=== PATIENT | female | born 1965 | race Hispanic/Latino ===

== ENCOUNTER 2018-03-25 18:16 | Observation (INO) | payer BC ==
[~2018-03-25] VITALS: Ht 149.9 cm; Wt 79.8 kg
[~2018-03-25 18:16] MED LIST: AMBIEN10 MG PO; AMITRIPTYLINE H50 MG PO; ASPIR-TRIN325 MG PO; ASPIRIN325 M2 PO; ASPIRIN325 MG PO; DIAZEPAM10 MG PO; DIAZEPAM5 MG PO; IBUPROFEN400 MG PO; LAMOTRIGINE100 MG PO; LISINOPRIL10 MG PO; MACROBID 100 M100 MG PO; NORCO 10MG-325MG1 EA PO; OXYBUTYNIN CHLOR5 MG PO; Z.0.AMLODIPINE BESY1 PO; Z.0.CLONIDINE HCL0.2 PO; Z.0.TORADOL10 MG; Z.0.VICODIN 5-5001 E PO; Z.0.XANAX1 MG PO
[2018-03-25 19:12] LABS: BASOPHILS % 0.4 % (0.0-1.0); EOSINOPHILS # (AUTO) 0.2 (0.0-0.4); EOSINOPHILS % 1.6 % (0.0-6.0); HEMATOCRIT 41.5 % (34.2-44.1); HEMOGLOBIN 14.2 g/dL (12.0-16.0); LYMPHOCYTES # (AUTO) 3.4 (1.0-3.2); LYMPHOCYTES % 34.7 % (18.0-39.1); MEAN CORPUSCULAR HEMOGLOBIN 29.4 pg (28-32); MEAN CORPUSCULAR HGB CONC 34.2 g/dL (31-35); MEAN CORPUSCULAR VOLUME 85.9 fL (81-99); MONOCYTES # (AUTO) 0.5 (0.2-0.8); MONOCYTES % 5.3 % (4.4-11.3); NEUTROPHILS # (AUTO) 5.6 (2.1-6.9); NEUTROPHILS % 57.7 % (38.7-80.0); PLATELET COUNT 298 x10e3/uL (140-360); RED BLOOD COUNT 4.83 x10e6/uL (3.6-5.1)
[2018-03-25 19:19] LABS: BILIRUBIN,URINE NEGATIVE (NEGATIVE); CLARITY,URINE CLEAR (CLEAR); COLOR,URINE YELLOW (YELLOW); KETONES,URINE NEGATIVE (NEGATIVE); LEUKOCYTE ESTERASE ,URINE TRACE (NEGATIVE); NITRITE,URINE NEGATIVE (NEGATIVE); PROTEIN,URINE DIPSTICK 1+ (NEGATIVE); URINE UROBILINOGEN 0.2 mg/dL (0.2 - 1)
[2018-03-25] MEDS ORDERED: ONDANSETRON HCL INJ 2 MG/ML VIAL IV STA (19:25)
[2018-03-25 19:30] LABS: BACTERIA,URINE FEW /HPF; EPITHELIAL CELLS,URINE RARE /LPF; MUCUS,URINE FEW (RARE); WBC,URINE (MAN) 21-50 /HPF (0-5)
[2018-03-25] MEDS ORDERED: KETOROLAC TROMETHAMINE 30 MG/ML VIAL IV NR (19:30)
[2018-03-25 19:34] LABS: ALANINE AMINOTRANSFERASE 20 IU/L (0-55); ALBUMIN/GLOBULIN RATIO 1.2 (0.8-2.0); ALKALINE PHOSPHATASE 84 IU/L (40-150); ANION GAP 15.8 mmol/L (8-16); BLOOD UREA NITROGEN 16 mg/dL (7-26); BUN/CREATININE RATIO 19 (6-25); CALCIUM 9.7 mg/dL (8.4-10.2); CARBON DIOXIDE 23 mmol/L (22-29); CHLORIDE 108 mmol/L (98-107); CREATININE, SERUM 0.85 mg/dL (0.57-1.11); EST GLOMERULAR FILTRATION RATE > 60 ML/MIN (60-); GLUCOSE 95 mg/dL (74-118); POTASSIUM 3.8 mmol/L (3.5-5.1); SODIUM 143 mmol/L (136-145)
[2018-03-25] MEDS ORDERED: CEFTRIAXONE SOD 1 GM VIAL IV ONE (19:45)
[2018-03-25] MEDS ORDERED: SODIUM CHLORIDE 0.9% 1000ML 1,000 ML IV SCH (20:00)
[2018-03-25] MEDS ORDERED: ONDANSETRON HCL INJ 2 MG/ML VIAL IV PRN (20:00)
[2018-03-25] MEDS ORDERED: CEFTRIAXONE SOD 1 GM VIAL IV SCH (20:00)
[2018-03-25] MEDS ORDERED: MORPHINE SULFATE 2 MG/ML SYR IV PRN (20:00)
--- NOTE | 2018-03-25 20:08 | Diagnostic Imaging Report ---
EXAM: CT Abdomen and Pelvis WITHOUT contrast INDICATION: Kidney stone. Pain. COMPARISON: 09/13/2016. TECHNIQUE: Abdomen and pelvis were scanned utilizing a multidetector helical scanner from the lung base to the pubic symphysis without administration of IV contrast. Absence of intravenous contrast decreases sensitivity for detection of focal lesions and vascular pathology. Coronal and sagittal reformations were obtained. Routine protocol was performed. IV CONTRAST: None. ORAL CONTRAST: Water RADIATION DOSE: Total DLP: 723.32 mGy*cm Estimated effective dose: (DLP x 0.015 x size factor) mSv COMPLICATIONS: None FINDINGS: LINES and TUBES: None. LOWER THORAX: Bibasilar dependent atelectasis. HEPATOBILIARY: Diffuse low-attenuation of the hepatic parenchyma suggestive of steatosis with focal fatty sparing about the gallbladder fossa. No focal hepatic lesions. No biliary ductal dilation. GALLBLADDER: No radio-opaque stones or sludge. No wall thickening. SPLEEN: No splenomegaly. Capsular calcification again observed. PANCREAS: No focal masses or ductal dilatation. ADRENALS: Mild thickening of the adrenal glands bilaterally with low attenuation suggestive of the presence of small adenomata versus less likely hyperplasia. KIDNEYS/URETERS: Bilateral cortical scarring, right greater than left. No hydronephrosis. No cystic or solid mass lesions. Bilateral nonobstructing renal calculi the largest in the lower pole of the left kidney measuring 8.6 mm again observed. The previously present right double-J ureteral stent has been removed. GI TRACT: No abnormal distention, wall thickening, or evidence of bowel obstruction. Appendix is normal. PELVIC ORGANS/BLADDER: Unremarkable. LYMPH NODES: No lymphadenopathy. VESSELS: There is mild atherosclerotic disease in the aorta and major arterial branches. PERITONEUM / RETROPERITONEUM: No free air or fluid. BONES: Unremarkable. SOFT TISSUES: Unremarkable. IMPRESSION: 1. Bilateral nonobstructing renal calculi. Signed by: Dr. Cyndi Hurd M.D. on 03/25/2018 8:05 PM
[2018-03-25] MEDS ORDERED: ONDANSETRON HCL INJ 2 MG/ML VIAL ONE (20:45)
[2018-03-25] MEDS ORDERED: SODIUM CHLORIDE 0.9% 1000ML 1,000 ML ONE (20:45)
[2018-03-25] MEDS ORDERED: HYDRALAZINE HCL 20 MG/ML VIAL IV PRN ×2 (21:15→23:45)
[2018-03-25] MEDS ORDERED: HYDROCODONE/APAP 10MG-325MG TAB PO PRN ×2 (21:15→23:45)
--- NOTE | 2018-03-25 21:54 | History and Physical ---
CHIEF COMPLAINT: Abdominal pain, nausea, and vomiting. HPI: Ms. Alvarez is a 52-year-old female. She presented to the emergency room with worsening left flank pain, nausea, and vomiting. The pain felt like her kidney stone. She has history of multiple kidney stones in the past and follows up with Dr. Mccarthy. She reports that the pain is better now. She reported that the pain was associated with nausea and vomiting, it is better now. She denies any chest pain, shortness of breath, or focal weakness. REVIEW OF SYSTEMS: GENERAL: Denies any fever or chills. HEAD: Denies any head trauma. ENT: Denies any earache. CVS: Denies any chest pain. RESPIRATORY: Denies any shortness of breath. The rest of the review of systems is negative except as in HPI. PAST MEDICAL HISTORY: History of kidney stones in the past, hypertension. PAST SURGICAL HISTORY: , cystoscopy, rotator cuff surgery. FAMILY AND SOCIAL HISTORY: She smokes one-third pack per day. She denies any alcohol use. 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 Lives with her and kids. PHYSICAL EXAMINATION: VITAL SIGNS: Temperature 98.5, pulse of 94, blood pressure 116/54, respiratory rate of 18, O2 sat 97%. HEENT: Head atraumatic, normocephalic. Oral mucosa is dry. Oropharynx clear. NECK: Supple. No JVD. Thyroid not enlarged. CHEST: Clear to auscultation bilaterally. No wheezing, no crackles. HEART: S1 and S2 audible. ABDOMEN: Soft, nontender, nondistended. EXTREMITIES: No clubbing, cyanosis, or edema. NEUROLOGICAL: Awake and alert. LABS: White count of 9.7, hemoglobin 14.2, platelets 298,000. Chemistry is within normal limits. She underwent a CT scan of the abdomen and pelvis, which showed bilateral nonobstructing renal stone. ASSESSMENT: Ms. Alvarez is a 52-year-old female presented with abdominal pain, like her usual pain with kidney stones as she has history of multiple kidney stones in the past. CURRENT PROBLEMS: 1. Nephrolithiasis. 2. Hypertension. PLAN: 1. Continue the patient on Rocephin as ordered. 2. Consult urology. 3. Discharge patient home when cleared by urology. Job#: [id number]
[2018-03-26] MEDS: SODIUM CHLORIDE 0.9% 1000ML 1,000 ML IV SCH ×3 (00:09→21:37)
[2018-03-26] MEDS: OXYBUTYNIN CHLORIDE 5 MG TAB PO SCH ×4 (00:10→21:37)
[2018-03-26] MEDS: LISINOPRIL 10 MG TAB PO SCH ×2 (02:19→21:00)
[2018-03-26] MEDS: ZOLPIDEM TARTRATE 10 MG TAB PO SCH ×2 (02:20→21:37)
[2018-03-26 05:50] LABS: BASOPHILS # (AUTO) 0.1 (0.0-0.1); BASOPHILS % 0.5 % (0.0-1.0); EOSINOPHILS # (AUTO) 0.2 (0.0-0.4); EOSINOPHILS % 2.2 % (0.0-6.0); HEMATOCRIT 39.5 % (34.2-44.1); HEMOGLOBIN 13.4 g/dL (12.0-16.0); LYMPHOCYTES # (AUTO) 4.6 (1.0-3.2); LYMPHOCYTES % 49.2 % (18.0-39.1); MEAN CORPUSCULAR HEMOGLOBIN 29.5 pg (28-32); MEAN CORPUSCULAR HGB CONC 33.9 g/dL (31-35); MEAN CORPUSCULAR VOLUME 86.8 fL (81-99); MONOCYTES # (AUTO) 0.6 (0.2-0.8); MONOCYTES % 6.1 % (4.4-11.3); NEUTROPHILS # (AUTO) 3.9 (2.1-6.9); NEUTROPHILS % 41.7 % (38.7-80.0); PLATELET COUNT 254 x10e3/uL (140-360); RED BLOOD COUNT 4.55 x10e6/uL (3.6-5.1); RED CELL DISTRIBUTION WIDTH 14.2 % (11.7-14.4)
[2018-03-26 06:20] LABS: ANION GAP 11.9 mmol/L (8-16); BLOOD UREA NITROGEN 16 mg/dL (7-26); BUN/CREATININE RATIO 18 (6-25); CALCIUM 9.2 mg/dL (8.4-10.2); CARBON DIOXIDE 25 mmol/L (22-29); CHLORIDE 110 mmol/L (98-107); CREATININE, SERUM 0.91 mg/dL (0.57-1.11); EST GLOMERULAR FILTRATION RATE > 60 ML/MIN (60-); GLUCOSE 85 mg/dL (74-118); POTASSIUM 3.9 mmol/L (3.5-5.1); SODIUM 143 mmol/L (136-145)
[2018-03-26] MEDS ORDERED: CEFTRIAXONE SOD 1 GM VIAL ONE (08:44)
[2018-03-26] MEDS ORDERED: GENTAMICIN 80MG/NS 100 ML 200 ML IV ONE (08:45)
[2018-03-26] MEDS ORDERED: IOPAMIDOL 300MG/ML 50ML INFUS..BTL IV ONE (08:49)
[2018-03-26] MEDS ORDERED: AMLODIPINE BESYLATE 10 MG TAB PO SCH (09:00)
[2018-03-26] MEDS ORDERED: LAMOTRIGINE 100 MG TAB PO SCH (09:00)
[2018-03-26] MEDS ORDERED: ASPIRIN 325 MG TAB PO SCH (09:00)
[2018-03-26] MEDS ORDERED: OXYBUTYNIN CHLORIDE 5 MG TAB PO SCH (09:00)
[2018-03-26] MEDS: ASPIRIN 325 MG TAB PO SCH (09:00)
[2018-03-26] MEDS: CEFTRIAXONE SOD 1 GM VIAL IV SCH ×2 (09:00→21:37)
[2018-03-26] MEDS: LAMOTRIGINE 100 MG TAB PO SCH (09:00)
[2018-03-26] MEDS ORDERED: FLUCONAZOLE 100 MG TAB PO SCH (09:00)
[2018-03-26] MEDS: FLUCONAZOLE 100 MG TAB PO SCH (09:00)
[2018-03-26] MEDS ORDERED: FENTANYL CITRATE/PF 100MCG/2 ML INJ ONE ×2 (11:28→16:32)
[2018-03-26] MEDS ORDERED: MORPHINE SULFATE 2 MG/ML SYR ONE (13:42)
[2018-03-26 14:30] VITALS: BP 138/64
[2018-03-26] MEDS ORDERED: SEVOFLURANE INHAL SOLN 250 ML PEN BTL ONE (14:41)
[2018-03-26] MEDS ORDERED: LIDOCAINE HCL 2% LOCAL INJ 5 ML SDV VIAL INJ ONE (14:41)
[2018-03-26] MEDS ORDERED: ONDANSETRON HCL INJ 2 MG/ML VIAL ONE (14:41)
[2018-03-26] MEDS ORDERED: DEXAMETHASONE SOD PHOS INJ 4 MG/ML VIAL ONE (14:41)
[2018-03-26] MEDS ORDERED: PROPOFOL IV EMULSION 10 MG/ML 20 ML VIAL ONE (14:41)
[2018-03-26 16:25] VITALS: BP 141/62
[2018-03-26] MEDS ORDERED: MIDAZOLAM HCL 2 MG/2 ML VIAL ONE (16:32)
[2018-03-26] MEDS: AMLODIPINE BESYLATE 10 MG TAB PO SCH (17:05)
[2018-03-26] MEDS: MORPHINE SULFATE INJ 4 MG/ML INJ IV PRN ×2 (17:05→21:30)
[2018-03-26 20:00] VITALS: BP 126/59
[2018-03-26] MEDS ORDERED: ZOLPIDEM TARTRATE 10 MG TAB PO SCH (21:00)
[2018-03-26] MEDS ORDERED: LISINOPRIL 10 MG TAB PO SCH (21:00)
[2018-03-27] VITALS (7 sets, daily range): BP systolic 111–135; BP diastolic 55–67
[2018-03-27] MEDS: MORPHINE SULFATE INJ 4 MG/ML INJ IV PRN ×5 (03:52→22:28)
[2018-03-27 05:18] LABS: BASOPHILS % 0.2 % (0.0-1.0); EOSINOPHILS % 0.2 % (0.0-6.0); HEMATOCRIT 35.9 % (34.2-44.1); HEMOGLOBIN 12.3 g/dL (12.0-16.0); LYMPHOCYTES # (AUTO) 2.5 (1.0-3.2); LYMPHOCYTES % 25.2 % (18.0-39.1); MEAN CORPUSCULAR HEMOGLOBIN 29.2 pg (28-32); MEAN CORPUSCULAR HGB CONC 34.3 g/dL (31-35); MEAN CORPUSCULAR VOLUME 85.3 fL (81-99); MONOCYTES # (AUTO) 0.6 (0.2-0.8); MONOCYTES % 6.4 % (4.4-11.3); NEUTROPHILS # (AUTO) 6.7 (2.1-6.9); NEUTROPHILS % 67.4 % (38.7-80.0); PLATELET COUNT 210 x10e3/uL (140-360); RED BLOOD COUNT 4.21 x10e6/uL (3.6-5.1); RED CELL DISTRIBUTION WIDTH 13.6 % (11.7-14.4)
[2018-03-27 05:40] LABS: ANION GAP 13.1 mmol/L (8-16); BLOOD UREA NITROGEN 13 mg/dL (7-26); BUN/CREATININE RATIO 16 (6-25); CALCIUM 8.6 mg/dL (8.4-10.2); CARBON DIOXIDE 23 mmol/L (22-29); CHLORIDE 111 mmol/L (98-107); CREATININE, SERUM 0.83 mg/dL (0.57-1.11); EST GLOMERULAR FILTRATION RATE > 60 ML/MIN (60-); GLUCOSE 107 mg/dL (74-118); POTASSIUM 4.1 mmol/L (3.5-5.1); SODIUM 143 mmol/L (136-145)
[2018-03-27] MEDS: SODIUM CHLORIDE 0.9% 1000ML 1,000 ML IV SCH ×3 (05:45→21:06)
[2018-03-27] MEDS: AMLODIPINE BESYLATE 10 MG TAB PO SCH (08:15)
[2018-03-27] MEDS: CEFTRIAXONE SOD 1 GM VIAL IV SCH ×2 (08:15→21:05)
[2018-03-27] MEDS: ASPIRIN 325 MG TAB PO SCH (08:15)
[2018-03-27] MEDS: OXYBUTYNIN CHLORIDE 5 MG TAB PO SCH ×3 (08:15→21:05)
[2018-03-27] MEDS: LAMOTRIGINE 100 MG TAB PO SCH (08:15)
[2018-03-27] MEDS: FLUCONAZOLE 100 MG TAB PO SCH (08:15)
[2018-03-27] MEDS: ONDANSETRON HCL INJ 2 MG/ML VIAL IV PRN (14:36)
[2018-03-27] MEDS: LISINOPRIL 10 MG TAB PO SCH (21:05)
[2018-03-27] MEDS: ZOLPIDEM TARTRATE 10 MG TAB PO SCH (21:05)
[2018-03-28] MEDS: SODIUM CHLORIDE 0.9% 1000ML 1,000 ML IV SCH ×2 (01:45→07:16)
[2018-03-28] MEDS: MORPHINE SULFATE INJ 4 MG/ML INJ IV PRN (02:45)
[2018-03-28] MEDS: ONDANSETRON HCL INJ 2 MG/ML VIAL IV PRN (02:45)
[2018-03-28 04:00] VITALS: BP 129/64
[2018-03-28 08:25] VITALS: BP 110/58
[2018-03-28] MEDS: ASPIRIN 325 MG TAB PO SCH (09:24)
[2018-03-28] MEDS: OXYBUTYNIN CHLORIDE 5 MG TAB PO SCH (09:24)
[2018-03-28] MEDS: CEFTRIAXONE SOD 1 GM VIAL IV SCH (09:24)
[2018-03-28] MEDS: FLUCONAZOLE 100 MG TAB PO SCH (09:24)
[2018-03-28] MEDS: AMLODIPINE BESYLATE 10 MG TAB PO SCH (09:24)
[2018-03-28] MEDS: LAMOTRIGINE 100 MG TAB PO SCH (09:24)
[2018-03-28 10:40] VITALS: BP 110/58
[2018-03-28] MEDS ORDERED: DIFLUCAN100 MG PO (11:00)
[2018-03-28] MEDS ORDERED: ZOFRAN ODT4 MG SL (11:00)
[2018-03-28] MEDS ORDERED: TYLENOL WITH C1 EACH PO (11:01)
--- NOTE | 2018-03-28 14:42 | Discharge Summary ---
FINAL DIAGNOSES 1. Nephrolithiasis. 2. Status post lithotripsy. 3. Hypertension. 4. History of kidney stones in the past. 5. Smoker. ADMISSION HISTORY AND HOSPITAL COURSE: Ms. Alvarez is a 52-year-old female admitted with abdominal pain and nausea, found to have nonobstructing renal stone. Patient underwent lithotripsy. Dr. Mccarthy evaluated the patient. Patient had UTI and has been started on Diflucan. Urology has cleared the patient for discharge. She will be discharged home to follow with her primary care physician. NI KEE MD Job#: [id number] EV
--- OUTSIDE RECORDS SUMMARY | 2018-05-22 00:13 | XMS REPORT ---
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 Allergies, Adverse Reactions, Alerts This patient has no known allergies or adverse reactions. Medications This patient has no known medications. Results Test Description Test Time Test Comments Text Results Atomic Results Result Comments CT ABDOMEN/PELVIS WO 2018-03-25 19:58:00 [place] [address] Patient Name: CADENCE OBREGON MR #: [id number] : 1965 Age/Sex: 52/F Req #: [id number] Adm Physician: Ordered by: JULIETA FAULKNER MD Report #: [id number] Location: ER Room/Bed: ____ Procedure: [id number] CT/CT ABDOMEN/PELVIS WO Exam Date: 03/25/18 Exam Time: 0 REPORT STATUS: Signed EXAM: CT Abdomen and Pelvis WITHOUT contrast INDICATION: Kidney stone. Pain. COMPARISON: 09/13/2016. TECHNIQUE: Abdomen and pelvis were scanned utilizing a multidetector helical scanner from the lung base to the pubic symphysis without administration of IV contrast. Absence of intravenous contrast decreases sensitivity for detection of focal lesions and vascular pathology. Coronal and sagittal reformations were obtained. Routine protocol was performed. IV CONTRAST: None. ORAL CONTRAST: Water RADIATION DOSE: Total DLP: 723.32 mGy*cm Estimated effective dose: (DLP x 0.015 x size factor) mSv COMPLICATIONS: None FINDINGS: LINES and TUBES: None. LOWER THORAX : Bibasilar dependent atelectasis. HEPATOBILIARY: Diffuse low-attenuation of the hepatic parenchyma suggestive of steatosis with focal fatty sparing about the gallbladder fossa. No focal hepatic lesions. No biliary ductal dilation. GALLBLADDER: No radio-opaque stones or sludge. No wall thickening. SPLEEN: No splenomegaly. Capsular calcification again observed. PANCREAS: No focal masses or ductal dilatation. ADRENALS: Mild thickening of the adrenal glands bilaterally with low attenuation suggestive of the presence of small adenomata versus less likely hyperplasia. KIDNEYS/URETERS: Bilateral cortical scarring, right greater than left. No hydronephrosis. No cystic or solid mass lesions. Bilateral nonobstructing renal calculi the largest in the lower pole of the left kidney measuring 8.6 mm again observed. The previously present right double-J ureteral stent has been removed. GI TRACT: No abnormal distention, wall thickening, or evidence of bowel obstruction. Appendix is normal. PELVIC ORGANS/ BLADDER: Unremarkable. LYMPH NODES: No lymphadenopathy. VESSELS: There is mild atherosclerotic disease in the aorta and major arterial branches. PERITONEUM / RETROPERITONEUM: No free air or fluid. BONES: Unremarkable. SOFT TISSUES: Unremarkable. IMPRESSION: 1. Bilateral nonobstructing renal calculi. Signed by: Dr. Cyndi Chisholm M.D. on 03/25/2018 8:05 PM Dictated By: RADHA CHISHOLM MD, MD 04 Transcribed By : MAYRA on 03/25/182004 COPY TO: JULIETA FAULKNER MD CT ABDOMEN/PELVIS [place] [address] Patient Name: CADENCE OBREGON MR #: [id number] : 1965 Age/Sex: 51/F Req #: [id number] Adm Physician: HUGO PINA MD Ordered by: FABY GARZA MD Report #: [id number] Location: [facility] Room/Bed: [place] [address] Procedure: [id number] CT/CT ABDOMEN/PELVIS WO Exam Date: 07/24/17 Exam Time: 1350 REPORT STATUS: Signed PROCEDURE: CT ABDOMEN AND PELVIS WITHOUT CONTRAST TECHNIQUE: The abdomen and pelvis were scanned utilizing a multidetector helical scanner from the diaphragm to the lesser trochanter after the oral administration of water. No IV contrast was administered first, renal stone protocol. Coronal and sagittal multiplanar reformations were obtained. COMPARISON: [facility], CT, CT ABDOMEN/PELVIS WO, 07/04/2017, 20:07. INDICATIONS: RIGHT FLANK PAIN FINDINGS: ABSENCE OF INTRAVENOUS CONTRAST DECREASES SENSITIVITY FOR DETECTION OF FOCAL LESIONS AND VASCULAR PATHOLOGY. LOWER THORAX: Mild bilateral lower lobe dependent atelectasis. HEPATOBILIARY: No focal hepatic lesions. No biliary ductal dilatation. Gallbladder is unremarkable. SPLEEN: No splenomegaly. Stable peripheral linear calcifications in the lateral aspect of the spleen (for example series 3, images 31 and 35). PANCREAS: No focal masses or ductal dilatation. ADRENALS: Stable mild thickening of bilateral adrenal glands, without discrete focal lesions. KIDNEYS/URETERS: Right: Right double-J internal ureteral stent in place with proximal pigtail in the renal pelvis and distal pigtail in the bladder. Mild hydronephrosis, which is improved since the prior exam. * 7 mm oval shaped calcific density adjacent to the stent in the proximal right ureter (coronal image 59 and series 3, image 74) . There is mild to moderate ureteral wall thickening in the proximal and mid ureter, predominantly adjacent to the described calcification (series 3, images 73-79). * Stable 5-6 mm nonobstructing calculus in the superior pole with adjacent moderate cortical scarring (series 3, image 43). * Interval increase in size of 1.0 cm nonobstructing calculus in the inferior pole ( coronal image 66 and series 3, image 66). * Previously visualized punctate and 8mm and 6 mm nonobstructing calculi are not seen in the current exam. No contour abnormalities. Left: No ureteral calculi, hydronephrosis, or obstruction. * Stable 7-8 mm, nonobstructing calculus in the superior to mid aspect (series 3, image 48). * Stable 3 mm nonobstructing calculus in the interpolar region (series 3, image 54). * Punctate, nonobstructing calculus in the mid to inferior aspect (series 3, image 60). * Stable 9 mm nonobstructing calculus in the inferior pole (series 3, image 74). Cortical scarring in the superior pole and interpolar region. No other contour abnormalities. PELVIC ORGANS/BLADDER: Bladder is unremarkable. No bladder calculi. Uterus is unremarkable. No adnexal masses. PERITONEUM / RETROPERITONEUM: No free air or fluid. LYMPH NODES: No lymphadenopathy. VESSELS: Atherosclerotic calcification of the abdominal aorta. GI TRACT: No bowel dilation or evidence of obstruction. No pericolonic inflammatory changes. Appendix is well identified and normal in caliber. BONES AND SOFT TISSUES: No acute bony abnormalities. Degenerative disc changes in the thoracic and lumbosacral spine. No lytic lesions. IMPRESSION: 1. right double-J internal ureteral stent in place. Mild hydronephrosis is noted the, which is improved since the prior exam, however, likely reflect suboptimal function of the stent. 2. A 7 mm calcific density adjacent to the stent in the proximal right ureter may reflect encrustation or migration of a previously visualized nonobstructing right renal calculus. 3. Interval increase in size of 1.0 cm nonobstructing calculus in the inferior pole. The right kidney. Several other nonobstructing calculi previously noted in the right kidney are not seen in the current exam. 4. Mild to moderate wall thickening in the proximal and mid aspects of the right ureter, which are likely reactive or inflammatory. The exam is limited by lack of intravenous contrast. 5. Stable left nonobstructing calculi. No ureteral calculi, hydronephrosis, or obstruction. Eugene Almeida M.D. Dictated by: Eugene Almeida M.D. on 07/24/2017 at 14:55 Electronically approved by: Eugene Almeida M.D. on 07/24/2017 at 14:55 Dictated By: EUGENE ALMEIDA MD 54 Transcribed By: JORDAN on 07/24/171454 COPY TO: FABY GARZA MD CT ABDOMEN/PELVIS WO [place] [address] Patient Name: CADENCE OBREGON MR #: [id number] : 1965 Age/Sex: 51/F Req #: [id number] Adm Physician: Ordered by: DAKOTA GUADALUPE MD Report #: [id number] Location: ER Room/Bed: Procedure: [id number] CT/CT ABDOMEN/PELVIS WO Exam Date: Exam Time: REPORT STATUS: Signed EXAM: CT Abdomen and Pelvis WITHOUT contrast INDICATION: Kidney stone. Abdominal pain. Flank pain COMPARISON: 11/01/2015 TECHNIQUE: Abdomen and pelvis were scanned utilizing a multidetector helical scanner from the lung base to the pubic symphysis without administration of IV contrast. Absence of intravenous contrast decreases sensitivity for detection of focal lesions and vascular pathology. Coronal and sagittal reformations were obtained. Routine protocol was performed. IV CONTRAST: None. ORAL CONTRAST: Water RADIATION DOSE: Total DLP: 666.12 mGy*cm Estimated effective dose: (DLP x 0.015 x size factor) mSv COMPLICATIONS: None FINDINGS: LINES and TUBES: None. LOWER THORAX : Unremarkable HEPATOBILIARY: No focal hepatic lesions. No biliary ductal dilation. GALLBLADDER: No radio-opaque stones or sludge. No wall thickening. SPLEEN: No splenomegaly. PANCREAS: No focal masses or ductal dilatation. ADRENALS: No adrenal nodules KIDNEYS/URETERS : Moderate right hydronephrosis with obstructing stone in the distal right ureter measuring 4 mm best seen on series 3 image 119. Numerous right and left renal stones are seen. There is mild right-sided perinephric fat stranding. No cystic or solid mass lesions. GI TRACT: No abnormal distention, wall thickening, or evidence of bowel obstruction. Appendix is normal. PELVIC ORGANS/BLADDER: Unremarkable. LYMPH NODES: No lymphadenopathy. VESSELS: Unremarkable. PERITONEUM / RETROPERITONEUM: No free air or fluid. BONES: Unremarkable. SOFT TISSUES: Nonspecific coarse calcifications in the pelvis adjacent to the posterior uterus best seen on series 3 image 133 IMPRESSION: 1. Obstructing distal right ureteral stone with right-sided hydronephrosis. Numerous other right and left renal stones are seen. Signed by: Dr. Stevie Burgess M.D. on 07/04/2017 8:35 PM Dictated By: STEVIE BURGESS MD, MD 34 Transcribed By: MAYRA on 07/04/172034 COPY TO: DAKOTA GUADALUPE MD
--- OUTSIDE RECORDS SUMMARY | 2018-05-22 00:24 | XMS REPORT | Continuity of Care Document ---
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 No 07/24/17 5:25pm If yes, is advance directive on file with [facility]? No 07/24/17 5:25pm If not on file with [facility] will patient provide a copy? Yes 03/25/18 8:10pm Do you have a Directive to Physician? No 03/25/18 8:10pm Do you have a Medical Power of Application Developer? No 03/25/18 8:10pm Do you have an out of hospital Do Not Resuscitate Order? No 03/25/18 8:10pm Do you have any special needs we should be aware of? No 03/25/18 8:10pm Do you have a support person here with you today? Yes 03/25/18 8:10pm Did patient receive Notice of Privacy Practices? Yes 03/25/18 8:10pm Did patient receive patient rights and responsibilities? Yes 03/25/18 8:10pm Problems Medical Problem Onset Date Status Acute urinary tract infection 04/09/2014 Acute CALCULUS OF URETER 04/09/2014 Acute Flank pain, acute Unknown HYDRONEPHROSIS 04/09/2014 Acute Kidney stone 04/20/2014 Acute Obstructive uropathy 11/02/2015 Acute UTI (urinary tract infection) 11/02/2015 Acute UTI (urinary tract infection) Unknown Ureterolithiasis Unknown Urinary (tract) obstruction Unknown Urinary tract infectious disease 04/20/2014 Acute Medications Current Home Medications Medication Dose Units Route Directions Days Qty Instructions Start Date Acetaminophen/Hydrocodone Bitart (Patterson 10MG-325MG*) 1 Ea Tab 1 Ea Oral Every 4 Hours as needed for Pain Amitriptyline Hcl 50 Mg Tablet 50 Mg Oral Bedtime Amlodipine Besylate 10 Mg Tablet 10 Mg Oral Daily Aspirin 325 Mg Tablet 325 Mg Oral Daily Diazepam 10 Mg Tablet 10 Mg Oral Twice A Day as needed for Anxiety Ibuprofen 400 Mg Tablet 600 Mg Oral Three Times A Day as needed for Pain Lamotrigine 100 Mg Tablet 200 Mg Oral Daily 30 Tab Lisinopril 10 Mg Tablet 20 Mg Oral Bedtime 30 Tab Oxybutynin Chloride 5 Mg Tablet 5 Mg Oral Three Times A Day 30 Tab Zolpidem Tartrate (Ambien) 10 Mg Tablet 10 Mg Oral Bedtime Past Home Medications Medication Directions Ordered Status Alprazolam (Xanax) 1 Mg Tablet, 1 Mg Oral Three Times A Day as needed for Anxiety Discontinued Aspirin (Aspir-Denisha) 325 Mg Tablet.dr, 235 Mg Oral Daily Discontinued Aspirin 325 Mg Tabec, 325 Mg Oral Daily Discontinued Clonidine Hcl 0.2 Mg Tablet, 0.2 Mg Oral Bedtime Discontinued Diazepam 5 Mg Tablet, 10 Mg Oral Daily Discontinued Hydrocodone Bit/Acetaminophen (Vicodin 5-500 Tablet) 1 Each Tablet, 1 Each Oral Q6 Prn Discontinued Ketorolac Tromethamine (Toradol) 10 Mg Tablet, Discontinued Nitrofurantoin Monohyd/M-Cryst (Macrobid 100 Mg Capsule) 100 Mg Capsule, 100 Mg Oral Twice A Day Discontinued Social History Social History Problem Response Recorded Date/Time Onset Date Status Hx Psychiatric Problems Yes 07/24/2017 5:25pm Not Applicable Not Applicable Hx Eating Disorder No 07/24/2017 5:25pm Not Applicable Not Applicable Hx Substance Use Disorder No 07/24/2017 5:25pm Not Applicable Not Applicable Hx Depression Yes 07/24/2017 5:25pm Not Applicable Not Applicable Hx Alcohol Use No 07/24/2017 5:25pm Not Applicable Not Applicable Hx Substance Use Treatment No 07/24/2017 5:25pm Not Applicable Not Applicable Hx Physical Abuse No 07/24/2017 5:25pm Not Applicable Not Applicable Hospital Discharge Instructions No hospital discharge instruction information available. Plan of Care Discharge Date 03/26/18 8:38am Disposition ADMITTED Condition at Discharge Stable Forms Provided Work/School Excuse Prescriptions See Medication Section Functional Status No functional status information available. Allergies, Adverse Reactions, Alerts No known allergies. Immunizations No immunization information available. Vital Signs Acute Vital Signs Vital Response Date/Time Temperature (Fahrenheit) 97.4 degrees F (97.6 - 99.5) 07/27/2017 11:41am Pulse Pulse Rate (adult) 60 bpm (60 - 90) 03/26/2018 8:40am Respiratory Rate 15 bpm (12 - 24) 03/26/2018 8:40am Blood Pressure 123/70 mm Hg 03/26/2018 8:40am Height 4 ft 11 in 03/25/2018 6:37pm Weight 176 lb 03/25/2018 6:37pm Body Mass Index 35.5 kg/m^2 03/25/2018 6:37pm Results Laboratory Results Test Name Result Units Flags Reference Collection Date/Time Result Date/ Time Comments Urine Test NEGATIVE NEGATIVE 07/04/2017 6:44pm 07/04/2017 8 :36pm Magnesium Level 1.7 MG/DL 1.3-2.1 07/06/2017 6:27am 07/06/2017 7:52am Urine Yeast FEW H NONE 07/24/2017 10:25am 07/24/2017 10:57am White Blood Count 9.39 x10e3/uL 4.8-10.8 03/26/2018 4:50am 03/26/2018 6 :00am Red Blood Count 4.55 x10e6/uL 3.6-5.1 03/26/2018 4:50am 03/26/2018 6: 00am Hemoglobin 13.4 g/dL 12.0-16.0 03/26/2018 4:50am 03/26/2018 6:00am Hematocrit 39.5 % 34.2-44.1 03/26/2018 4:50am 03/26/2018 6:00am Mean Corpuscular Volume 86.8 fL 81-99 03/26/2018 4:50am 03/26/2018 6: 00am Mean Corpuscular Hemoglobin 29.5 pg 28-32 03/26/2018 4:50am 03/26/2018 6:00am Mean Corpuscular Hemoglobin Concent 33.9 g/dL 31-35 03/26/2018 4:50am 03/26/2018 6:00am Red Cell Distribution Width 14.2 % 11.7-14.4 03/26/2018 4:50am 2017 6:00am Platelet Count 254 x10e3/uL 140-360 03/26/2018 4:50am 03/26/2018 6: 00am Neutrophils (%) (Auto) 41.7 % 38.7-80.0 03/26/2018 4:50am 03/26/2018 6: 00am Lymphocytes (%) (Auto) 49.2 % H 18.0-39.1 03/26/2018 4:50am 03/26/2018 6 :00am Monocytes (%) (Auto) 6.1 % 4.4-11.3 03/26/2018 4:50am 03/26/2018 6: 00am Eosinophils (%) (Auto) 2.2 % 0.0-6.0 03/26/2018 4:50am 03/26/2018 6: 00am Basophils (%) (Auto) 0.5 % 0.0-1.0 03/26/2018 4:50am 03/26/2018 6:00am IM GRANULOCYTES % 0.3 % 0.0-1.0 03/26/2018 4:50am 03/26/2018 6:00am Neutrophils # (Auto) 3.9 2.1-6.9 03/26/2018 4:50am 03/26/2018 6:00am Lymphocytes # (Auto) 4.6 H 1.0-3.2 03/26/2018 4:50am 03/26/2018 6: 00am Monocytes # (Auto) 0.6 0.2-0.8 03/26/2018 4:50am 03/26/2018 6:00am Eosinophils # (Auto) 0.2 0.0-0.4 03/26/2018 4:50am 03/26/2018 6:00am Basophils # (Auto) 0.1 0.0-0.1 03/26/2018 4:50am 03/26/2018 6:00am Absolute Immature Granulocyte (auto 0.03 x10e3/uL 0-0.1 03/26/2018 4: 50am 03/26/2018 6:00am Urine Color YELLOW YELLOW 03/25/2018 6:45pm 03/25/2018 7:19pm Urine Clarity CLEAR CLEAR 03/25/2018 6:45pm 03/25/2018 7:19pm Urine Specific [place] 1.020 1.010-1.025 03/25/2018 6:45pm 2017 7:19pm Urine pH 6 5 - 7 03/25/2018 6:45pm 03/25/2018 7:19pm Urine Leukocyte Esterase TRACE H NEGATIVE 03/25/2018 6:45pm 2017 7:19pm Urine Nitrite NEGATIVE NEGATIVE 03/25/2018 6:45pm 03/25/2018 7:19pm Urine Protein 1+ H NEGATIVE 03/25/2018 6:45pm 03/25/2018 7:19pm Urine Glucose (UA) NEGATIVE NEGATIVE 03/25/2018 6:45pm 03/25/2018 7: 19pm Urine Ketones NEGATIVE NEGATIVE 03/25/2018 6:45pm 03/25/2018 7:19pm Urine Urobilinogen 0.2 mg/dL 0.2 - 1 03/25/2018 6:45pm 03/25/2018 7: 19pm Urine Bilirubin NEGATIVE NEGATIVE 03/25/2018 6:45pm 03/25/2018 7: 19pm Urine Blood TRACE H NEGATIVE 03/25/2018 6:45pm 03/25/2018 7:19pm Urine WBC 21-50 /HPF H 0-5 03/25/2018 6:45pm 03/25/2018 7:30pm Urine RBC 6-10 /HPF H 0-5 03/25/2018 6:45pm 03/25/2018 7:30pm Urine Bacteria FEW /HPF NONE 03/25/2018 6:45pm 03/25/2018 7:30pm Urine Epithelial Cells RARE /LPF NONE 03/25/2018 6:45pm 03/25/2018 7: 30pm Urine Mucus FEW H RARE 03/25/2018 6:45pm 03/25/2018 7:30pm Sodium Level 143 mmol/L 136-145 03/26/2018 4:50am 03/26/2018 6:21am Potassium Level 3.9 mmol/L 3.5-5.1 03/26/2018 4:50am 03/26/2018 6:21am Chloride Level 110 mmol/L H 98-107 03/26/2018 4:50am 03/26/2018 6:21am Carbon Dioxide Level 25 mmol/L 22-29 03/26/2018 4:50am 03/26/2018 6: 21am Anion Gap 11.9 mmol/L 8-03/26/2018 4:50am 03/26/2018 6:21am Blood Urea Nitrogen 16 mg/dL 7-03/26/2018 4:50am 03/26/2018 6:21am Creatinine 0.91 mg/dL 0.57-1.11 03/26/2018 4:50am 03/26/2018 6:21am BUN/Creatinine Ratio 18 6-25 03/26/2018 4:50am 03/26/2018 6:21am Estimat Glomerular Filtration Rate > 60 ML/MIN 60- 03/26/2018 4:50am 6:21am Ranges were taken from the National Kidney Disease Education Program and the National Kid[employer] Foundation literature. Reference ranges: 60 or greater: Normal 16-59 (for 3 consecutive months): Chronic kidney disease 15 or less: Kidney failure Glucose Level 85 mg/dL 74-118 03/26/2018 4:50am 03/26/2018 6:21am Calcium Level 9.2 mg/dL 8.4-10.2 03/26/2018 4:50am 03/26/2018 6:21am Total Bilirubin 0.3 mg/dL 0.2-1.2 03/25/2018 6:45pm 03/25/2018 7:37pm Aspartate Amino Transf (AST/SGOT) 22 IU/L 5-34 03/25/2018 6:45pm 2017 7:37pm Alanine Aminotransferase (ALT/SGPT) 20 IU/L 0-55 03/25/2018 6:45pm 02/2018 7:37pm Total Protein 7.3 g/dL 6.5-8.1 03/25/2018 6:45pm 03/25/2018 7:37pm Albumin 4.0 g/dL 3.5-5.0 03/25/2018 6:45pm 03/25/2018 7:37pm Globulin 3.3 g/dL 2.3-3.5 03/25/2018 6:45pm 03/25/2018 7:37pm Albumin/Globulin Ratio 1.2 0.8-2.0 03/25/2018 6:45pm 03/25/2018 7: 37pm Alkaline Phosphatase 84 IU/L 40-150 03/25/2018 6:45pm 03/25/2018 7: 37pm Microbiology Results Procedure Source Organism/Result Collection Date/Time Result Date/Time Result Status Urine Culture Urine,Catheterized PAZ ALBICANS 07/24/2017 10:25am 07/28 7:22am Final Procedures Procedure Status Date Provider(s) EXTIRPATION OF MATTER FROM RIGHT URETER, ENDO Completed 07/05/17 LAVELLE,SHELLIE HARMAN DILATION OF RIGHT URETER WITH INTRALUMINAL DEVICE, ENDO Completed 07/05/17 JASONPEL,SHELLIE HARMAN FLUOROSCOPY KIDNEY, URETER, BLADDER, R W L OSM CONTRAST Completed 07/05/17 LAVELLE,SHELLIE HARMAN EXTIRPATION OF MATTER FROM RIGHT KIDNEY, ENDO Completed 07/26/17 JASONPEL,SHELLIE HARMAN EXTIRPATION OF MATTER FROM RIGHT URETER, ENDO Completed 07/26/17 JASONPEL,SHELLIE HARMAN EXTIRPATION OF MATTER FROM LEFT KIDNEY, ENDO Completed 07/26/17 JASONPEL,SHELLIE HARMAN DILATION OF BILATERAL URETERS WITH INTRALUMINAL DEVICE, ENDO Completed LAVELLE,SHELLIE HARMAN Extracorporeal shock wave lithotripsy (ESWL) Active 03/26/[address] of abdomen and pelvis without contrast Active 07/04/[address] of abdomen and pelvis without contrast Active 07/24/[address] of abdomen and pelvis without contrast Active 03/25/18 JULIETA FAULKNER MD Encounters Encounter Location Arrival/Admit Date Discharge/Depart Date Attending Provider Departed Emergency Room [facility] 03/25/18 6:16pm 8:38am NI KEE MD Discharged Inpatient [facility] 07/24/17 2:32pm 07/27/17 12:39pm HUGO PINA MD Discharged Inpatient [facility] 07/04/17 9:56pm 07/07/17 2:28pm HUGO PINA MD
--- NOTE | 2018-05-22 02:41 | Operative Report ---
DATE OF PROCEDURE: March 26, 2018 PREOPERATIVE DIAGNOSES 1. Left nephrolithiasis. 2. Urinary tract infections. 3. Stress-type urinary incontinence. POSTOPERATIVE DIAGNOSES 1. Left nephrolithiasis. 2. Urinary tract infections. 3. Stress-type urinary incontinence. 4. Mild rectocele. OPERATIONS PERFORMED: Note these are staged procedures as part of multistage process of managing the patient's recurrent urolithiasis. 1. Left-sided extracorporeal shockwave lithotripsy (separate procedure performed for the nephrolithiasis). 2. Cystourethroscopy with bilateral ureteral catheterization and retrograde ureteropyelography (separate procedure performed for the urinary tract infections). 3. Interpretation of retrograde ureteropyelography. 4. Supervision of fluoroscopy. No radiologist present. 5. Pelvic examination under anesthesias. ANESTHESIA: General. COMPLICATIONS: None. CLINICAL SUMMARY: Zaynab Alvarez is a 52-year-old woman with recurrent urolithiasis. She is brought for the above procedures. She is aware of the risks of bleeding, infection, injury to adjacent structures, need for additional procedure and elected to proceed. OPERATIVE PROCEDURE IN DETAIL: Informed consent was verified. Zaynab Alvarez was properly identified, taken to the operating room, placed on the lithotripsy table in supine position. Anesthesia was uneventfully begun. We localized the patient's 8-mm left upper caliceal stone and 6 mm left lower caliceal stone and we divided the 2500 shocks that we delivered between 2 stones. Once this was accomplished, we had excellent fragmentation. The patient was carefully and gently re-positioned in dorsal lithotomy position with all pressure points well padded. Her genitalia were prepared and draped in usual sterile fashion. The 22.5-Azerbaijani cystoscope sheath with obturator in place was atraumatically inserted in patient's urethra and the bladder was drained. Panendoscopy revealed no suspicious mucosal lesions, no tumors and no stones. Normally positioned and configured ureteral orifices were identified. Ureteral catheter was used to cannulate each ureter and retrograde ureteropyelograms were performed. Interpretation of retrograde ureteropyelography: Contrast was instilled in retrograde fashion bilaterally. There were no tumors, no diverticula and no stones within the ureters. On the left side, there was no hydronephrosis, but there were filling defects which corresponded to where we performed lithotripsy. On the right hand side, there was a chronic hydroureteronephrosis with a caliceal blunting. There was a caliceal diverticulum in the right upper pole which seemed to contain a stone within it. This was a very thin to this diverticulum and I do not see this stone being able to communicate with the collecting system. We did not treat this right upper caliceal diverticular stone and we will plan to follow it. The patient's bladder was then drained. Cystoscope was withdrawn. Pelvic examination under anesthesia revealed mild rectocele. No abnormal palpable pelvic masses could be appreciated. Patient was then uneventfully reversed from anesthesia and taken to the recovery room in stable condition. There were no complications to the procedure. She tolerated the procedure well. We will plan on following the patient during her hospitalization, await the cultures that we obtained, and of course, the patient knows she needs to maintain ongoing urological followup. Job#: [id number]
== END 2018-03-28 11:30 | disposition home or self-care (01) ==
LOC: OR 18:16 → ERHOLD 19:52 → UNDOADMIN 19:52 → OR 03-26 08:38 → INTOOBSV 03-26 10:16 → PACU V 03-26 10:16 → MED/SURG 03-26 14:13
PROVIDERS: ADMIT Internal Medicine; ATTEND Internal Medicine
DX: N20.0 Calculus of kidney (principal); B37.49 Other urogenital candidiasis; I10 Essential (primary) hypertension; F41.8 Other specified anxiety disorders; Z86.73 Personal history of transient ischemic attack (TIA), and cerebral infarction without residual deficits; E66.9 Obesity, unspecified; R31.29 Other microscopic hematuria; N26.1 Atrophy of kidney (terminal); Z68.35 Body mass index [BMI] 35.0-35.9, adult; F17.210 Nicotine dependence, cigarettes, uncomplicated; N81.6 Rectocele; N39.3 Stress incontinence (female) (male)
CPT/HCPCS: 36415 ×3; 50590; 74176; 80048 ×2; 80053; 81001; 85025 ×3; 87086; 99284; G0378 ×3; J0696 ×4; J1100; J1580; J1885; J2001; J2250; J2270 ×5; J2405 ×4; J7030 ×4; Q9967

== ENCOUNTER 2018-11-14 15:41 | Emergency (ER) | payer BC ==
[~2018-11-14] VITALS: Ht 149.9 cm; Wt 79.8 kg
[~2018-11-14 15:41] MED LIST changes: +DIFLUCAN100 MG PO; +TYLENOL WITH C1 EACH PO; +ZOFRAN ODT4 MG SL
--- OUTSIDE RECORDS SUMMARY | 2018-11-14 15:45 | XMS REPORT | Continuity of Care Document ---
Author Author [facility] Interface Address Unknown Phone Unavailable Problems Problem Status Onset Date Classification Date Reported Comments Source Obstructive uropathy Active 11/02/2015 Problem 03/28/2018 [facility] UTI Active 11/02/2015 Problem 03/28/2018 [facility] Kidney stone Active 04/20/2014 Problem 03/28/2018 [facility] Urinary tract infectious disease Active 04/20/2014 Problem 03/28/2018 [facility] Acute urinary tract infection Active 04/09/2014 Problem 03/28/2018 [facility] CALCULUS OF URETER Active 04/09/2014 Problem 03/28/2018 [facility] HYDRONEPHROSIS Active 04/09/2014 Problem 03/28/2018 [facility] Flank pain, acute Active Problem 03/28/2018 [facility] Ureterolithiasis Active Problem 03/28/2018 [facility] Urinary obstruction Active Problem 03/28/2018 [facility] Medications Medication Details Route Status Patient Instructions Ordering Provider Order Date Source Acetaminophen/Hydrocodone Bitart (Converse 10MG-325MG*) 1 Ea Tab, 1 Ea Oral Every 4 Hours as needed for Pain Active 03/28/2018 [facility] Diazepam 5 Mg Tablet, 10 Mg Oral Daily Active 07/24/2017 [facility] Aspirin (Aspir-Denisha) 325 Mg Tablet.dr, 235 Mg Oral Daily Active 11/01/2015 [facility] Alprazolam (Xanax) 1 Mg Tablet, 1 Mg Oral Three Times A Day as needed for Anxiety Active 09/22/2015 [facility] Clonidine Hcl 0.2 Mg Tablet, 0.2 Mg Oral Bedtime Active 09/22/2015 [facility] Nitrofurantoin Monohyd/M-Cryst (Macrobid 100 Mg Capsule) 100 Mg Capsule, 100 Mg Oral Twice A Day Active 09/22/2015 [facility] Aspirin 325 Mg Tabec, 325 Mg Oral Daily Active 04/27/2012 [facility] Hydrocodone Bit/Acetaminophen (Vicodin 5-500 Tablet) 1 Each Tablet, 1 Each Oral Q6 Prn Active 04/27/2012 [facility] Ketorolac Tromethamine (Toradol) 10 Mg Tablet, Active 04/22/2012 [facility] Acetaminophen With Codeine (Tylenol With Codeine #3 Tablet) 1 Each Tablet Every 4 Hours as needed for Pain Active [facility] Amitriptyline Hcl 50 Mg Tablet Bedtime Active [facility] Amlodipine Besylate 10 Mg Tablet Daily Active [facility] Aspirin 325 Mg Tablet Daily Active [facility] Diazepam 10 Mg Tablet Twice A Day as needed for Anxiety Active [facility] Fluconazole (Diflucan) 100 Mg Tablet Daily Active [facility] Ibuprofen 400 Mg Tablet Three Times A Day as needed for Pain Active [facility] Lamotrigine 100 Mg Tablet Daily Active [facility] Lisinopril 10 Mg Tablet Bedtime Active [facility] Ondansetron (Zofran Odt) 4 Mg Tab.rapdis Every 6 Hours as needed for Nausea And Vomiting Active [facility] Oxybutynin Chloride 5 Mg Tablet Three Times A Day Active [facility] Zolpidem Tartrate (Ambien) 10 Mg Tablet Bedtime Active [facility] Allergies, Adverse Reactions, Alerts Substance Category Reaction Severity Reaction type Status Date Reported Comments Source Immunizations Immunization Date Given Site Status Last Updated Comments Source Results Order Name Results Value Reference Range Date Interpretation Comments Source Automated blood basophil count (count/volume) Automated blood basophil count (count/volume) 0.0 0.0 - 0.1 03/27/2018 [facility] Automated blood basophil count as percentage of total leukocytes Automated blood basophil count as percentage of total leukocytes 0.2 0.0 - 1.0 03/27/2018 [facility] Automated blood eosinophil count Automated blood eosinophil count 0.0 0.0 - 0.4 03/27/2018 [facility] Automated blood eosinophil count as percentage of total leukocytes Automated blood eosinophil count as percentage of total leukocytes 0.2 0.0 - 6.0 03/27/2018 [facility] Automated blood hematocrit (volume fraction) Automated blood hematocrit (volume fraction) 35.9 34.2 - 44.1 03/27/2018 [facility] Automated blood lymphocyte count as percentage ot total leukocytes Automated blood lymphocyte count as percentage ot total leukocytes 25.2 18.0 - 39.1 03/27/2018 [facility] Automated blood monocyte count as percentage of total leukocytes Automated blood monocyte count as percentage of total leukocytes 6.4 4.4 - 11.3 03/27/2018 [facility] Automated blood neutrophil count Automated blood neutrophil count 6.7 2.1 - 6.9 03/27/2018 [facility] Automated blood platelet count (count/volume) Automated blood platelet count (count/volume) 210 140 - 360 03/27/2018 [facility] Automated blood segmented neutrophil count as percentage of total leukocytes Automated blood segmented neutrophil count as percentage of total leukocytes 67.4 38.7 - 80.0 03/27/2018 [facility] Automated erythrocyte mean corpuscular hemoglobin (mass per erythrocyte) Automated erythrocyte mean corpuscular hemoglobin (mass per erythrocyte) 29.2 28 - 32 03/27/2018 [facility] Automated erythrocyte mean corpuscular hemoglobin concentration measurement (mass/volume) Automated erythrocyte mean corpuscular hemoglobin concentration measurement (mass/volume) 34.3 31 - 35 03/27/2018 [facility] Automated erythrocyte mean corpuscular volume Automated erythrocyte mean corpuscular volume 85.3 81 - 99 03/27/2018 [facility] Blood erythrocytes automated count (number/volume) Blood erythrocytes automated count (number/volume) 4.21 3.6 - 5.1 03/27/2018 [facility] Blood hemoglobin measurement (moles/volume) Blood hemoglobin measurement (moles/volume) 12.3 12.0 - 16.0 03/27/2018 [facility] Blood leukocytes automated count (number/volume) Blood leukocytes automated count (number/volume) 9.92 4.8 - 10.8 03/27/2018 [facility] Blood lymphocytes count (number/volume) Blood lymphocytes count (number/volume) 2.5 1.0 - 3.2 03/27/2018 [facility] Blood monocytes automated count (number/volume) Blood monocytes automated count (number/volume) 0.6 0.2 - 0.8 03/27/2018 [facility] Estimated glomerular filtration rate (GFR) determination Estimated glomerular filtration rate (GFR) determination null 60 03/27/2018 [facility] Glucose measurement Glucose measurement 107 74 - 118 03/27/2018 [facility] Serum or plasma anion gap Serum or plasma anion gap 13.1 8 - 16 03/27/2018 [facility] Serum or plasma calcium measurement (mass/volume) Serum or plasma calcium measurement (mass/volume) 8.6 8.4 - 10.2 03/27/2018 [facility] Serum or plasma carbon dioxide, total measurement (moles/volume) Serum or plasma carbon dioxide, total measurement (moles/volume) 23 22 - 29 03/27/2018 [facility] Serum or plasma chloride measurement (moles/volume) Serum or plasma chloride measurement (moles/volume) 111 98 - 107 03/27/2018 [facility] Serum or plasma creatinine measurement (mass/volume) Serum or plasma creatinine measurement (mass/volume) 0.83 0.57 - 1.11 03/27/2018 [facility] Serum or plasma potassium measurement (moles/volume) Serum or plasma potassium measurement (moles/volume) 4.1 3.5 - 5.1 03/27/2018 [facility] Serum or plasma sodium measurement (moles/volume) Serum or plasma sodium measurement (moles/volume) 143 136 - 145 03/27/2018 [facility] Serum or plasma urea nitrogen measurement (mass/volume) Serum or plasma urea nitrogen measurement (mass/volume) 13 7 - 26 03/27/2018 [facility] Serum or plasma urea nitrogen/creatinine mass ratio Serum or plasma urea nitrogen/creatinine mass ratio 16 6 - 25 03/27/2018 [facility] Red Cell Distribution Width 13.6 11.7 - 14.4 03/27/2018 [facility] IM GRANULOCYTES % 0.6 0.0 - 1.0 03/27/2018 [facility] Absolute Immature Granulocyte (auto 0.06 0 - 0.1 03/27/2018 [facility] Automated urine sediment leukocyte count by microscopy (number/high power field) Automated urine sediment leukocyte count by microscopy (number/high power field) null 0 - 5 03/25/2018 [facility] Bacteria detection in urine sediment by light microscopy Bacteria detection in urine sediment by light microscopy FEW NONE 03/25/2018 [facility] Epithelial cells detection in urine sediment by light microscopy Epithelial cells detection in urine sediment by light microscopy RARE NONE 03/25/2018 [facility] Erythrocytes detection in urine sediment by light microscopy Erythrocytes detection in urine sediment by light microscopy null 0 - 5 03/25/2018 [facility] Mucus detection in urine sediment by light microscopy Mucus detection in urine sediment by light microscopy FEW RARE 03/25/2018 [facility] Plasma globulin measurement (mass/volume) Plasma globulin measurement (mass/volume) 3.3 2.3 - 3.5 03/25/2018 [facility] Serum or plasma alanine aminotransferase measurement (enzymatic activity/volume) Serum or plasma alanine aminotransferase measurement (enzymatic activity/volume) 20 0 - 55 03/25/2018 [facility] Serum or plasma albumin measurement (mass/volume) Serum or plasma albumin measurement (mass/volume) 4.0 3.5 - 5.0 03/25/2018 [facility] Serum or plasma albumin/globulin mass ratio Serum or plasma albumin/globulin mass ratio 1.2 0.8 - 2.0 03/25/2018 [facility] Serum or plasma alkaline phosphatase measurement (enzymatic activity/volume) Serum or plasma alkaline phosphatase measurement (enzymatic activity/volume) 84 40 - 150 03/25/2018 [facility] Serum or plasma protein measurement (mass/volume) Serum or plasma protein measurement (mass/volume) 7.3 6.5 - 8.1 03/25/2018 [facility] Serum or plasma total bilirubin measurement (mass/volume) Serum or plasma total bilirubin measurement (mass/volume) 0.3 0.2 - 1.2 03/25/2018 [facility] Specific gravity of Urine by Test strip Specific gravity of Urine by Test strip 1.020 1.010 - 1.025 03/25/2018 [facility] Urine clarity Urine clarity CLEAR CLEAR 03/25/2018 [facility] Urine color determination Urine color determination YELLOW YELLOW 03/25/2018 [facility] Urine erythrocytes detection Urine erythrocytes detection TRACE NEGATIVE 03/25/2018 [facility] Urine glucose detection Urine glucose detection NEGATIVE NEGATIVE 03/25/2018 [facility] Urine ketones detection by automated test strip Urine ketones detection by automated test strip NEGATIVE NEGATIVE 03/25/2018 [facility] Urine leukocyte esterase detection by dipstick Urine leukocyte esterase detection by dipstick TRACE NEGATIVE 03/25/2018 [facility] Urine nitrite detection Urine nitrite detection NEGATIVE NEGATIVE 03/25/2018 [facility] Urine pH measurement by automated test strip Urine pH measurement by automated test strip 6 5 - 7 03/25/2018 [facility] Urine protein measurement by test strip (mass/volume) Urine protein measurement by test strip (mass/volume) 1+ NEGATIVE 03/25/2018 [facility] Urine total bilirubin measurement (mass/volume) Urine total bilirubin measurement (mass/volume) NEGATIVE NEGATIVE 03/25/2018 [facility] Urine urobilinogen measurement by test strip (mass/volume) Urine urobilinogen measurement by test strip (mass/volume) 0.2 0.2 - 1 03/25/2018 [facility] Aspartate Amino Transf (AST/SGOT) 22 5 - 34 03/25/2018 [facility] Yeast detection in urine sediment by light microscopy Yeast detection in urine sediment by light microscopy FEW NONE 07/24/2017 [facility] Serum or plasma magnesium measurement (mass/volume) Serum or plasma magnesium measurement (mass/volume) 1.7 1.3 - 2.1 07/06/2017 [facility] Urine human chorionic gonadotropin (hCG) detection Urine human chorionic gonadotropin (hCG) detection NEGATIVE NEGATIVE 07/04/2017 [facility] Bacterial urine culture Bacterial urine culture Urine Culture [facility] Vital Signs Vital Sign Value Date Comments Source Encounters Location Location Details Encounter Type Encounter Number Reason For Visit Attending Provider ADM Date DC Date Status Source Discharged Inpatient [id number] HUGO PINA MD 07/04/2017 07/07/2017 [facility] Discharged Inpatient [id number] HUGO PINA MD 07/24/2017 07/27/2017 [facility] Discharged Inpatient (obs) [id number] NI KEE MD 03/26/2018 03/28/2018 [facility] Procedures Procedure Code Date Perfomer Comments Source Extracorporeal shock wave lithotripsy (ESWL) [id number] 03/26/2018 [facility] Cystoscopy with retrograde pyelography [id number] 03/26/2018 [facility] CT of abdomen and pelvis without contrast [id number] 03/25/2018 [id number] EXTIRPATION OF MATTER FROM RIGHT KIDNEY, ENDO [id number] 07/26/2017 [facility] EXTIRPATION OF MATTER FROM RIGHT URETER, ENDO [id number] 07/26/2017 [facility] EXTIRPATION OF MATTER FROM LEFT KIDNEY, ENDO [id number] 07/26/2017 [facility] DILATION OF BILATERAL URETERS WITH INTRALUMINAL DEVICE, ENDO [id number] 07/26/2017 [facility] CT of abdomen and pelvis without contrast [id number] 07/24/2017 [facility] EXTIRPATION OF MATTER FROM RIGHT URETER, ENDO [id number] 07/05/2017 [facility] DILATION OF RIGHT URETER WITH INTRALUMINAL DEVICE, ENDO [id number] 07/05/2017 [facility] FLUOROSCOPY KIDNEY, URETER, BLADDER, R W L OSM CONTRAST [id number] 07/05/2017 [facility] CT of abdomen and pelvis without contrast [id number] 07/04/[address] [facility] [place], [place]
[2018-11-14 16:53] LABS: BILIRUBIN,URINE NEGATIVE (NEGATIVE); CLARITY,URINE SL CLOUDY (CLEAR); COLOR,URINE YELLOW (YELLOW); KETONES,URINE NEGATIVE (NEGATIVE); LEUKOCYTE ESTERASE ,URINE TRACE (NEGATIVE); NITRITE,URINE NEGATIVE (NEGATIVE); PROTEIN,URINE DIPSTICK 1+ (NEGATIVE); URINE UROBILINOGEN 0.2 mg/dL (0.2 - 1)
[2018-11-14 17:07] LABS: BACTERIA,URINE MANY /HPF; EPITHELIAL CELLS,URINE MODERATE /LPF
[2018-11-14] MEDS ORDERED: MORPHINE SULFATE 2 MG/ML SYR 1ML IV STA (18:02)
[2018-11-14 18:10] LABS: BASOPHILS # (AUTO) 0.1 (0.0-0.1); BASOPHILS % 0.8 % (0.0-1.0); EOSINOPHILS # (AUTO) 0.2 (0.0-0.4); EOSINOPHILS % 2.3 % (0.0-6.0); HEMATOCRIT 44.4 % (34.2-44.1); HEMOGLOBIN 14.9 g/dL (12.0-16.0); LYMPHOCYTES # (AUTO) 3.6 (1.0-3.2); MEAN CORPUSCULAR HGB CONC 33.6 g/dL (31-35); MEAN CORPUSCULAR VOLUME 86.4 fL (81-99); MONOCYTES # (AUTO) 0.6 (0.2-0.8); MONOCYTES % 5.7 % (4.4-11.3); NEUTROPHILS % 56.8 % (38.7-80.0); PLATELET COUNT 296 x10e3/uL (140-360); RED BLOOD COUNT 5.14 x10e6/uL (3.6-5.1); RED CELL DISTRIBUTION WIDTH 13.8 % (11.7-14.4)
[2018-11-14] MEDS ORDERED: ONDANSETRON HCL INJ 2MG/ML 2ML 2 MG/ML VIAL IV ONE (18:15)
[2018-11-14] MEDS ORDERED: MORPHINE SULFATE INJ 4 MG/ML INJ 1ML IV ONE (18:15)
[2018-11-14 18:35] LABS: ANION GAP 15.3 mmol/L (8-16); BLOOD UREA NITROGEN 12 mg/dL (7-26); BUN/CREATININE RATIO 13 (6-25); CALCIUM 9.8 mg/dL (8.4-10.2); CARBON DIOXIDE 27 mmol/L (22-29); CHLORIDE 102 mmol/L (98-107); CREATININE, SERUM 0.93 mg/dL (0.57-1.11); EST GLOMERULAR FILTRATION RATE > 60 ML/MIN (60-); GLUCOSE 110 mg/dL (74-118); POTASSIUM 4.3 mmol/L (3.5-5.1); SODIUM 140 mmol/L (136-145)
--- NOTE | 2018-11-14 19:33 | Diagnostic Imaging Report ---
CT Abdomen and Pelvis without contrast INDICATION: Right-sided back pain, history of stones TECHNIQUE: Thin collimation axial images obtained from the diaphragm to the level of the pubic symphysis without nonionic intravenous contrast. Dose reduction techniques used: Automated exposure control, adjustment of the mAs and/or kVp according to patient size, standardized low-dose protocol, and/or iterative reconstruction technique. RADIATION DOSE: Total DLP: 642.49 mGy*cm Estimated effective dose: (DLP x 0.015 x size factor) mSv CTDIvol has been reviewed. It is below the limits set by the Radiation Protocol Committee (RPC). COMPARISON: CT abdomen 03/25/2018. ABDOMEN FINDINGS: Lung Bases: Clear. The visualized portion of the mediastinum is normal. Liver: Decreased hypoattenuation consistent with steatosis. No mass. Gallbladder: Present and is contracted. No ductal dilatation. Pancreas: Normal attenuation without mass. Spleen: Normal size without mass. Adrenal Glands: Stable nodular thickening of the adrenal glands with diffuse hypoattenuation. Kidneys: Right: Stable cortical scarring. Calculus in the upper pole measures 5 mm and may be within the parenchyma. Punctate calculus in the interpolar region is stable and may be within the parenchyma. Lower pole calyceal calcification measures 4 mm and is stable in position. No perinephric inflammation. No hydronephrosis. Left: Stable cortical scarring. Upper pole calcification measuring 6 mm on previous exam is no longer visualized. There is a 3 mm calcification in the upper pole that is stable. Posterior upper pole calculus measures 6 mm and appears new. Lower pole calculus measures 8 mm and is stable. No perinephric inflammation. No hydronephrosis. Lymph Nodes: No enlarged abdominal or periaortic lymph nodes. Aorta: Normal in diameter with diffuse calcifications PELVIS FINDINGS: Bowel: Stomach: Normal. Small Bowel: Normal in caliber with normal wall thickness. Large Bowel: Normal in caliber with normal wall thickness. Appendix: Normal. Bladder: Normal. No evidence of calculus. Ureters: No ureteral dilatation or calculus. The uterus is present and normal in morphology. No adnexal mass. Peritoneum/retroperitoneum: Calcification in the posterior pelvis is stable. No free fluid or fluid collection. Bones: Stable degenerative changes of the spine. No focal osseous lesions. Soft tissues: Stable fat-containing umbilical hernia. IMPRESSION: 1. 6 mm calculus in the upper pole the left kidney is no longer visualized. 8 mm calculus in the lower pole of the left kidney is stable. There are punctate calculi in the upper pole of the left kidney as described above.. 2. Calculi in the right kidney are similar in appearance. 3. No evidence of hydroureteronephrosis or ureteral calculus. Normal bladder. 4. No evidence for bowel obstruction or inflammation. Normal appendix. 5. Steatosis. 6. Stable nodularity of the adrenal glands suggestive of underlying adenomata. Signed by: Dr. Michela Cline MD on 11/14/2018 7:30 PM
[2018-11-14 21:23] VITALS: BP 167/87
== END 2018-11-14 21:30 | disposition home or self-care (01) ==
LOC: ER 15:41
DX: R10.9 Unspecified abdominal pain (principal); M54.5 Low back pain; N20.1 Calculus of ureter
CPT/HCPCS: 36415; 74176; 80048; 81001; 84550; 85025; 99284

== ENCOUNTER 2018-12-17 16:02 | Emergency (ER) | payer BC ==
[~2018-12-17] VITALS: Ht 149.9 cm; Wt 79.8 kg
--- NOTE | 2018-12-17 17:30 | NUR ---
PT RESTING QUIETLY IN NO DISTRESS. IV PLACED IN THE RIGHT AC AND BLOOD DRAWN.
[2018-12-17 17:55] LABS: BASOPHILS % 0.3 % (0.0-1.0); EOSINOPHILS # (AUTO) 0.1 (0.0-0.4); EOSINOPHILS % 0.7 % (0.0-6.0); HEMATOCRIT 43.5 % (34.2-44.1); LYMPHOCYTES # (AUTO) 2.5 (1.0-3.2); LYMPHOCYTES % 24.9 % (18.0-39.1); MEAN CORPUSCULAR HGB CONC 34.5 g/dL (31-35); MEAN CORPUSCULAR VOLUME 84.1 fL (81-99); MONOCYTES # (AUTO) 0.5 (0.2-0.8); MONOCYTES % 5.1 % (4.4-11.3); NEUTROPHILS # (AUTO) 6.8 (2.1-6.9); NEUTROPHILS % 68.5 % (38.7-80.0); PLATELET COUNT 248 x10e3/uL (140-360); RED BLOOD COUNT 5.17 x10e6/uL (3.6-5.1); RED CELL DISTRIBUTION WIDTH 13.7 % (11.7-14.4)
[2018-12-17 18:20] LABS: ALANINE AMINOTRANSFERASE 27 IU/L (0-55); ALBUMIN 4.1 g/dL (3.5-5.0); ALBUMIN/GLOBULIN RATIO 1.2 (0.8-2.0); ALKALINE PHOSPHATASE 88 IU/L (40-150); AMYLASE 66 U/L (25-125); BLOOD UREA NITROGEN 14 mg/dL (7-26); BUN/CREATININE RATIO 16 (6-25); CALCIUM 10.2 mg/dL (8.4-10.2); CARBON DIOXIDE 27 mmol/L (22-29); CHLORIDE 102 mmol/L (98-107); CREATINE KINASE 55 IU/L (29-168); CREATININE, SERUM 0.87 mg/dL (0.57-1.11); EST GLOMERULAR FILTRATION RATE > 60 ML/MIN (60-); GLUCOSE 91 mg/dL (74-118); LIPASE 22 U/L (8-78); MAGNESIUM 2.2 MG/DL (1.3-2.1); SODIUM 139 mmol/L (136-145)
[2018-12-17 18:21] LABS: INR 0.92; PROTHROMBIN TIME 12.8 seconds (11.9-14.5)
[2018-12-17 18:22] LABS: PARTIAL THROMBOPLASTIN TIME 25.9 seconds (23.8-35.5)
--- NOTE | 2018-12-17 18:24 | Diagnostic Imaging Report ---
EXAMINATION: CHEST SINGLE (PORTABLE) INDICATION: Stroke. TIA. COMPARISON: None FINDINGS: TUBES and LINES: None. LUNGS: Lungs are well inflated. Lungs are clear. There is no evidence of pneumonia or pulmonary edema. PLEURA: No pleural effusion or pneumothorax. HEART AND MEDIASTINUM: Cardiac size is mildly enlarged. BONES AND SOFT TISSUES: No acute osseous lesion. UPPER ABDOMEN: No free air under the diaphragm. IMPRESSION: No acute thoracic abnormality. Signed by: Dr. Cyndi Hurd M.D. on 12/17/2018 6:20 PM
[2018-12-17 18:26] LABS: CLARITY,URINE SL CLOUDY (CLEAR); COLOR,URINE YELLOW (YELLOW); KETONES,URINE NEGATIVE (NEGATIVE); LEUKOCYTE ESTERASE ,URINE NEGATIVE (NEGATIVE); NITRITE,URINE NEGATIVE (NEGATIVE); PROTEIN,URINE DIPSTICK TRACE (NEGATIVE)
[2018-12-17 18:27] LABS: BILIRUBIN,URINE NEGATIVE (NEGATIVE); URINE UROBILINOGEN 0.2 mg/dL (0.2 - 1)
[2018-12-17 18:33] LABS: BACTERIA,URINE MODERATE /HPF; EPITHELIAL CELLS,URINE MANY /LPF; WBC,URINE (MAN) 0-5 /HPF (0-5)
[2018-12-17 18:34] LABS: AMPHETAMINES SCREEN,URINE NEGATIVE (NEGATIVE); BENZODIAZEPINES SCREEN,URINE NEGATIVE (NEGATIVE); PHENCYCLIDINE SCREEN,URINE NEGATIVE (NEGATIVE)
--- NOTE | 2018-12-17 18:43 | Diagnostic Imaging Report ---
History: Left side of the face numbness Comparison studies: None Technique: Axial images were obtained from the skull base to the vertex. Coronal and sagittal reconstructions obtained from the axial data. Dose modulation, iterative reconstruction, and/or weight based adjustment of the mA/kV was utilized to reduce the radiation dose to as low as reasonably achievable. Findings: Scalp/skull: No abnormalities. No fractures, blastic or lytic lesions. Extra-axial spaces: No masses. No fluid collections. Brain sulci: Appropriate for age. Ventricles: Normal in size and configuration. No hydrocephalus. Parenchyma: Small chronic lacunar infarcts in the right caudate head and left insular region. No masses, hemorrhage, acute or chronic cortical vascular insults. Sellar/suprasellar region: No abnormalities Craniocervical junction: Patent foramen magnum. No Chiari one malformation. Atherosclerotic calcifications of the carotid siphons IMPRESSION: No acute abnormalities . Small chronic lacunar infarcts in the right caudate head and left insular region Signed by: DR Osmani Lopez M.D. on 12/17/2018 6:39 PM
[2018-12-17] MEDS ORDERED: ULTRAM50 MG PO (19:32)
== END 2018-12-17 20:09 | disposition home or self-care (01) ==
LOC: ER 16:02
DX: R07.89 Other chest pain (principal); R20.2 Paresthesia of skin; I10 Essential (primary) hypertension; Z86.73 Personal history of transient ischemic attack (TIA), and cerebral infarction without residual deficits; Z87.442 Personal history of urinary calculi; F41.9 Anxiety disorder, unspecified; Z87.440 Personal history of urinary (tract) infections; Z88.1 Allergy status to other antibiotic agents; Z82.49 Family history of ischemic heart disease and other diseases of the circulatory system
CPT/HCPCS: 36415; 70450; 71045; 80053; 80307; 81001; 82150; 82550; 82553; 83690; 83735; 83880; 84484; 85025; 85610; 85730; 99284

== ENCOUNTER 2019-01-20 18:22 | Observation (INO) | payer BC ==
[~2019-01-20] VITALS: Ht 152.4 cm; Wt 92.2 kg
[~2019-01-20 18:22] MED LIST changes: +ULTRAM50 MG PO
[2019-01-20] MEDS ORDERED: SODIUM CHLORIDE 0.9% 1000ML 1,000 ML IV STA (18:52)
[2019-01-20] MEDS ORDERED: ONDANSETRON HCL INJ 2MG/ML 2ML 2 MG/ML VIAL IV STA (18:52)
[2019-01-20] MEDS ORDERED: MORPHINE SULFATE INJ 4 MG/ML INJ 1ML IV NR (19:00)
--- NOTE | 2019-01-20 19:42 | Diagnostic Imaging Report ---
EXAMINATION: CT of the abdomen and pelvis without contrast. TECHNIQUE: Helical CT images of the abdomen and pelvis were performed from the lung bases to the lesser trochanters. No intravenous contrast was given per renal stone protocol. Coronal and sagittal reformatted images were obtained.Dose modulation, iterative reconstruction, and/or weight based adjustment of the mA/kV was utilized to reduce the radiation dose to as low as reasonably achievable. COMPARISON: November 14, 2018 CLINICAL HISTORY:Back pain DISCUSSION: ABSENCE OF INTRAVENOUS CONTRAST DECREASES SENSITIVITY FOR DETECTION OF FOCAL LESIONS AND VASCULAR PATHOLOGY. ABDOMEN/PELVIS: LOWER THORAX: Unremarkable. HEPATOBILIARY:Hepatic steatosis. Gallbladder unremarkable. SPLEEN: No splenomegaly. PANCREAS: No focal masses or ductal dilatation. ADRENALS: No adrenal nodules. KIDNEYS/URETERS: Nonobstructing renal calculi the largest on the left measuring 8 mm in the inferior pole and on the right measuring 6 mm in the superior pole. No hydronephrosis. PELVIC ORGANS/BLADDER: The bladder is normal. Calcifications along the uterus. No adnexal mass. PERITONEUM/RETROPERITONEUM: No free air or fluid. LYMPH NODES: No intra-abdominal,retroperitoneal, pelvic or inguinal lymphadenopathy. VESSELS: Vascular calcifications. GI TRACT: No distention or wall thickening. Appendix normal. BONES AND SOFT TISSUES: No bony destructive lesions. No soft tissue abnormalities. IMPRESSION: Nonobstructing bilateral renal calculi. Signed by: Dr. Samson Tate M.D. on 01/20/2019 7:39 PM
[2019-01-20 20:52] LABS: BASOPHILS # (AUTO) 0.1 (0.0-0.1); BASOPHILS % 0.5 % (0.0-1.0); EOSINOPHILS # (AUTO) 0.2 (0.0-0.4); EOSINOPHILS % 1.6 % (0.0-6.0); HEMATOCRIT 44.6 % (34.2-44.1); HEMOGLOBIN 15.2 g/dL (12.0-16.0); LYMPHOCYTES # (AUTO) 3.4 (1.0-3.2); LYMPHOCYTES % 31.3 % (18.0-39.1); MEAN CORPUSCULAR HEMOGLOBIN 29.1 pg (28-32); MEAN CORPUSCULAR HGB CONC 34.1 g/dL (31-35); MEAN CORPUSCULAR VOLUME 85.4 fL (81-99); MONOCYTES # (AUTO) 0.6 (0.2-0.8); NEUTROPHILS # (AUTO) 6.7 (2.1-6.9); PLATELET COUNT 303 x10e3/uL (140-360); RED BLOOD COUNT 5.22 x10e6/uL (3.6-5.1); RED CELL DISTRIBUTION WIDTH 14.3 % (11.7-14.4)
[2019-01-20 20:59] LABS: BILIRUBIN,URINE NEGATIVE (NEGATIVE); CLARITY,URINE CLEAR (CLEAR); COLOR,URINE YELLOW (YELLOW); KETONES,URINE NEGATIVE (NEGATIVE); LEUKOCYTE ESTERASE ,URINE TRACE (NEGATIVE); NITRITE,URINE NEGATIVE (NEGATIVE); PROTEIN,URINE DIPSTICK NEGATIVE (NEGATIVE); URINE UROBILINOGEN 0.2 mg/dL (0.2 - 1)
[2019-01-20 21:03] LABS: PREGNANCY TEST, URINE NEGATIVE (NEGATIVE)
[2019-01-20 21:12] LABS: BACTERIA,URINE MANY /HPF; EPITHELIAL CELLS,URINE MANY /LPF; WBC,URINE (MAN) 0-5 /HPF (0-5)
[2019-01-20 21:15] LABS: ALANINE AMINOTRANSFERASE 26 IU/L (0-55); ALBUMIN 4.4 g/dL (3.5-5.0); ALBUMIN/GLOBULIN RATIO 1.3 (0.8-2.0); ALKALINE PHOSPHATASE 83 IU/L (40-150); ANION GAP 16.7 mmol/L (8-16); BLOOD UREA NITROGEN 10 mg/dL (7-26); BUN/CREATININE RATIO 12 (6-25); CALCIUM 10.3 mg/dL (8.4-10.2); CARBON DIOXIDE 25 mmol/L (22-29); CHLORIDE 103 mmol/L (98-107); CREATININE, SERUM 0.84 mg/dL (0.57-1.11); EST GLOMERULAR FILTRATION RATE > 60 ML/MIN (60-); GLUCOSE 93 mg/dL (74-118); POTASSIUM 3.7 mmol/L (3.5-5.1); SODIUM 141 mmol/L (136-145)
[2019-01-20] MEDS ORDERED: FLUCONAZOLE 200 MG/100 ML 100 ML IV SCH (21:45)
[2019-01-20 22:39] VITALS: BP 145/101
[2019-01-20 22:47] VITALS: BP 145/101
[2019-01-20] MEDS: SODIUM CHLORIDE 0.9% 1000ML 1,000 ML IV SCH (23:05)
[2019-01-20] MEDS: LEVOFLOXACIN 500MG/D5W 100ML 100 ML IV SCH (23:05)
[2019-01-20] MEDS: HYDROMORPHONE 2MG/ML 2 MG/ML ML IV PRN (23:05)
[2019-01-20] MEDS: ONDANSETRON HCL INJ 2MG/ML 2ML 2 MG/ML VIAL IV PRN (23:05)
[2019-01-20] MEDS ORDERED: ZOLPIDEM TARTRATE 10 MG TAB PO PRN (23:30)
--- NOTE | 2019-01-20 23:46 | NUR ---
Received report from ER. Patient arrived on the floor at 2238. Patient is A/Ox3 admitted for kidney stones rating her pain /. Bed set low, side rails up x2, call light within reach and wheels lock. Patient would like to take Ambien to sleep as one of her meds she take at home. RN will call MD for order.
[2019-01-21] VITALS (8 sets, daily range): BP systolic 115–145; BP diastolic 58–101
[2019-01-21] MEDS ORDERED: FLUCONAZOLE 200 MG/100 ML 100 ML IV SCH (00:15)
[2019-01-21] MEDS: HYDROMORPHONE 2MG/ML 2 MG/ML ML IV PRN ×7 (02:04→23:43)
[2019-01-21] MEDS: ONDANSETRON HCL INJ 2MG/ML 2ML 2 MG/ML VIAL IV PRN (05:16)
[2019-01-21 05:25] LABS: BASOPHILS % 0.4 % (0.0-1.0); EOSINOPHILS # (AUTO) 0.2 (0.0-0.4); HEMATOCRIT 37.9 % (34.2-44.1); HEMOGLOBIN 12.5 g/dL (12.0-16.0); LYMPHOCYTES # (AUTO) 3.7 (1.0-3.2); LYMPHOCYTES % 40.8 % (18.0-39.1); MEAN CORPUSCULAR HEMOGLOBIN 28.7 pg (28-32); MEAN CORPUSCULAR VOLUME 86.9 fL (81-99); MONOCYTES # (AUTO) 0.6 (0.2-0.8); MONOCYTES % 6.5 % (4.4-11.3); NEUTROPHILS # (AUTO) 4.5 (2.1-6.9); NEUTROPHILS % 49.9 % (38.7-80.0); PLATELET COUNT 225 x10e3/uL (140-360); RED BLOOD COUNT 4.36 x10e6/uL (3.6-5.1); RED CELL DISTRIBUTION WIDTH 14.2 % (11.7-14.4)
[2019-01-21 05:47] LABS: ALANINE AMINOTRANSFERASE 19 IU/L (0-55); ALBUMIN 3.4 g/dL (3.5-5.0); ALBUMIN/GLOBULIN RATIO 1.3 (0.8-2.0); ALKALINE PHOSPHATASE 64 IU/L (40-150); ANION GAP 9.7 mmol/L (8-16); BLOOD UREA NITROGEN 9 mg/dL (7-26); BUN/CREATININE RATIO 11 (6-25); CALCIUM 8.7 mg/dL (8.4-10.2); CARBON DIOXIDE 26 mmol/L (22-29); CHLORIDE 105 mmol/L (98-107); EST GLOMERULAR FILTRATION RATE > 60 ML/MIN (60-); GLUCOSE 93 mg/dL (74-118); POTASSIUM 3.7 mmol/L (3.5-5.1); SODIUM 137 mmol/L (136-145)
[2019-01-21] MEDS: SODIUM CHLORIDE 0.9% 1000ML 1,000 ML IV SCH ×4 (06:13→20:51)
--- NOTE | 2019-01-21 06:55 | NUR ---
ROUNDED WITH [employer] TEACHER NURSE, PATIENT AWARE OF CHANGE AND IN NO DISTRESS. CALL BUENO WITHIN REACH AND BED IN LOWEST POSITION.
[2019-01-21] MEDS ORDERED: B&O 60MG R/S 60 MG SUPP PR ONE (10:03)
[2019-01-21] MEDS ORDERED: IOPAMIDOL 610MG/1ML 300 MG/ML VIAL IV ONE (10:03)
--- NOTE | 2019-01-21 10:14 | NUR ---
patient leaving unit to OR via stretcher. Patient alert and oriented and in no distress.
[2019-01-21] MEDS ORDERED: SODIUM CHLORIDE 0.9% 100 ML ONE (11:06)
--- NOTE | 2019-01-21 12:05 | NUR ---
report received from PACU, patient to arrive to unit alert and oriented via stretcher.
[2019-01-21] MEDS ORDERED: NON-FORMULARY MEDICATION (Diazepam 10 MG) PO PRN (13:45)
[2019-01-21] MEDS ORDERED: ONDANSETRON HCL 4 MG ORAL DISINTEGRATING TAB SL PRN (13:45)
[2019-01-21] MEDS ORDERED: IBUPROFEN 400 MG TAB PO PRN (13:45)
[2019-01-21] MEDS ORDERED: ACETAMINOPHEN/CODEINE 300MG - 30MG TAB PO PRN (13:45)
[2019-01-21] MEDS ORDERED: TRAMADOL HCL 50 MG TAB PO PRN (13:45)
[2019-01-21] MEDS ORDERED: IBUPROFEN 600 MG TAB PO PRN (14:00)
[2019-01-21] MEDS ORDERED: DIAZEPAM 5 MG TAB PO PRN (14:15)
[2019-01-21] MEDS: OXYBUTYNIN CHLORIDE 5 MG TAB PO SCH ×2 (15:00→20:24)
[2019-01-21] MEDS ORDERED: PHENYLEPHRINE HCL 1% 10 MG/ML VIAL ONE (18:04)
[2019-01-21] MEDS ORDERED: EPHEDRINE SULFATE INJ 50 MG/10 ML SYR ONE (18:04)
[2019-01-21] MEDS ORDERED: PROPOFOL IV EMULSION 10 MG/ML 20 ML VIAL ONE (18:04)
[2019-01-21] MEDS ORDERED: SEVOFLURANE INHAL SOLN 250 ML PEN BTL ONE (18:04)
[2019-01-21] MEDS ORDERED: LIDOCAINE HCL 2% LOCAL INJ 5 ML SDV VIAL INJ ONE (18:04)
[2019-01-21] MEDS ORDERED: ONDANSETRON HCL INJ 2MG/ML 2ML 2 MG/ML VIAL ONE (18:04)
[2019-01-21] MEDS ORDERED: DEXAMETHASONE SOD PHOS INJ 4 MG/ML VIAL ONE (18:04)
[2019-01-21] MEDS ORDERED: GLYCOPYRROLATE INJ 1MG/ 5 ML SYR ONE (18:04)
--- NOTE | 2019-01-21 18:45 | NUR ---
rounded with night supervisor nurse, patient resting comfortably and in no distress. call marquis within reach and bed in lowest position.
[2019-01-21] MEDS ORDERED: FENTANYL CITRATE/PF 100MCG/2 ML INJ ONE (19:04)
[2019-01-21] MEDS ORDERED: MIDAZOLAM HCL 2 MG/2 ML VIAL ONE (19:04)
[2019-01-21] MEDS: LEVOFLOXACIN 500MG/D5W 100ML 100 ML IV SCH (20:51)
[2019-01-21] MEDS ORDERED: LISINOPRIL 20 MG TAB PO SCH (21:00)
[2019-01-21] MEDS ORDERED: ZOLPIDEM TARTRATE 10 MG TAB PO SCH (21:00)
[2019-01-21] MEDS ORDERED: LISINOPRIL 10 MG TAB PO SCH (21:00)
--- NOTE | 2019-01-21 21:01 | History and Physical ---
HISTORY OF PRESENT ILLNESS: Zaynab Alvarez is a 53-year-old female, past medical history positive for kidney stone, hypertension, and obesity, came to the hospital because of left flank pain. The patient is apparently having bilateral kidney stones. She had an ESWL done by Dr. Mccarthy today. The patient is feeling sore on the left side. REVIEW OF SYSTEMS: CARDIOVASCULAR: No chest pain or palpitation. RESPIRATORY: No shortness of breath. No cough. GASTROINTESTINAL: No nausea or vomiting. No diarrhea. GENITOURINARY: Left flank pain. PAST MEDICAL HISTORY: 1. Hypertension. 2. Recurrent kidney stones. ALLERGIES: SHE IS ALLERGIC TO CEFTRIAXONE. SOCIAL HISTORY: She does not smoke. She does not drink. PHYSICAL EXAMINATION: VITAL SIGNS: Blood pressure 127/82, temperature 97.3, heart rate 85 per minute, respiratory rate is 20 per minute, and oxygen saturation 94%. HEART: Regular rhythm. Normal S1, S2 sound. LUNGS: Clear bilaterally. ABDOMEN: Soft. Mild tenderness on the left flank. EXTREMITIES: No evidence of cyanosis or hematoma. LABORATORY DATA: On the BMP; sodium 137, potassium 3.7, chloride 105, CO2 of 26, BUN 9, creatinine 0.80, and glucose 93. On CBC; white count 8.97, hemoglobin 12.5, hematocrit 37.9, and platelet count 225,000. AST 20, ALT 19, total bilirubin 0.4, and alkaline phosphatase 64. FINAL IMPRESSION: 1. Left kidney stone. 2. Urinary tract infection. 3. Hypertension. PLAN OF TREATMENT: Status post lithotripsy. Continue Levaquin 500 mg IV daily, fluconazole 100 mg IV daily, normal saline 125 mL an hour, Dilaudid 1 mg IV q.3 hours as needed, Zofran 4 mg IV q.4 hours as needed, Ambien 10 mg at night p.r.n. for sleep, and Tylenol 650 mg q.4 hours as needed for pain or fever. Tentative discharge for tomorrow. MD GEOVANY Cazares/JACQUI /[id number]
[2019-01-22 00:25] VITALS: BP 127/73
[2019-01-22] MEDS: HYDROMORPHONE 2MG/ML 2 MG/ML ML IV PRN (02:43)
[2019-01-22 04:20] VITALS: BP 122/66
[2019-01-22 06:11] LABS: BASOPHILS % 0.1 % (0.0-1.0); HEMATOCRIT 40.3 % (34.2-44.1); HEMOGLOBIN 13.7 g/dL (12.0-16.0); LYMPHOCYTES # (AUTO) 2.2 (1.0-3.2); LYMPHOCYTES % 15.6 % (18.0-39.1); MEAN CORPUSCULAR HEMOGLOBIN 29.1 pg (28-32); MEAN CORPUSCULAR VOLUME 85.6 fL (81-99); MONOCYTES # (AUTO) 0.9 (0.2-0.8); MONOCYTES % 5.9 % (4.4-11.3); NEUTROPHILS # (AUTO) 11.1 (2.1-6.9); NEUTROPHILS % 77.7 % (38.7-80.0); PLATELET COUNT 248 x10e3/uL (140-360); RED BLOOD COUNT 4.71 x10e6/uL (3.6-5.1)
[2019-01-22 06:35] LABS: ANION GAP 10.4 mmol/L (8-16); BLOOD UREA NITROGEN 12 mg/dL (7-26); BUN/CREATININE RATIO 14 (6-25); CALCIUM 9.4 mg/dL (8.4-10.2); CARBON DIOXIDE 24 mmol/L (22-29); CHLORIDE 109 mmol/L (98-107); CREATININE, SERUM 0.85 mg/dL (0.57-1.11); EST GLOMERULAR FILTRATION RATE > 60 ML/MIN (60-); GLUCOSE 109 mg/dL (74-118); POTASSIUM 4.4 mmol/L (3.5-5.1); SODIUM 139 mmol/L (136-145)
--- NOTE | 2019-01-22 06:50 | NUR ---
rounded with night clerk nurse patient aware of change and in no distress. call marquis within reach and bed in lowest position.
[2019-01-22 08:14] VITALS: BP 145/69
[2019-01-22 08:45] VITALS: BP 145/69
[2019-01-22] MEDS: OXYBUTYNIN CHLORIDE 5 MG TAB PO SCH (08:45)
[2019-01-22] MEDS ORDERED: ASPIRIN 325 MG TAB PO SCH (09:00)
[2019-01-22] MEDS ORDERED: FLUCONAZOLE 100 MG TAB PO SCH (09:00)
[2019-01-22] MEDS ORDERED: AMLODIPINE BESYLATE 10 MG TAB PO SCH (09:00)
[2019-01-22] MEDS ORDERED: LAMOTRIGINE 100 MG TAB PO SCH (09:00)
[2019-01-22] MEDS ORDERED: FLUCONAZOLE 100 MG PO SCH (09:00)
[2019-01-22 11:10] VITALS: BP 159/73
--- NOTE | 2019-01-22 11:40 | NUR ---
patient alert and oriented. discharge instructions given to patient at this time, patient verbalized understanding. IV discontinued, catheter in tact and pressure dressing applied. patient to be wheeled out to personal auto for significant other to drive home.
--- NOTE | 2019-01-23 02:35 | Discharge Summary ---
HISTORY: A 53-year-old female with a past medical history positive for hypertension, obesity, kidney stone. She had bilateral kidney stones, came here with left flank pain. She underwent lithotripsy by Dr. Mccarthy and discharged home after that. PHYSICAL EXAMINATION: ABDOMEN: Soft, nontender. No distention. No visceromegaly. FINAL IMPRESSION: 1. Bilateral kidney stones. 2. Urinary tract infection. 3. Hypertension. 4. Obesity. PLAN OF TREATMENT: The patient was discharged home with pain medications and also antibiotic therapy by Dr. Mccarthy. She is supposed to continue her antihypertensive regimen. She is going to continue Macrobid 100 mg p.o. twice a day for 5 days. Follow up with Dr. Mccarthy, urologist as an outpatient. MD GEOVANY Cazares/JACQUI /[id number]
--- NOTE | 2019-03-02 05:22 | Operative Report ---
DATE OF PROCEDURE: 01/21/2019 SURGEON: Akbar Mccarthy MD PREOPERATIVE DIAGNOSES: 1. Bilateral nephrolithiasis. 2. Urinary tract infections. POSTOPERATIVE DIAGNOSES: 1. Bilateral nephrolithiasis. 2. Urinary tract infections. 3. Atrophic vaginitis. 4. Mild cystocele. OPEATION PERFORMED: Note, these are all staged procedures as part of multi-stage, multi-step process in managing the patient's urolithiasis. 1. Left-sided extracorporeal shockwave lithotripsy (surgery performed for the left lower nephrolithiasis). 2. Cystourethroscopy with bilateral ureteral catheterization and retrograde ureteropyelography (separate procedure performed for the urinary tract infections). 3. Interpretation of retrograde ureteropyelography. 4. Supervision of fluoroscopy, no radiologist present. 5. Pelvic examination under anesthesia. ANESTHESIA: General. COMPLICATIONS: None. CLINICAL SUMMARY: Zaynab Alvarez is a 53-year-old woman with recurrent nephrolithiasis. She has had urinary tract infections as well. She is brought for the above procedures following her admission through the emergency room. She is aware of the risks of bleeding, infection, injury to adjacent structures, and need for additional procedures, and elected to proceed. OPERATIVE PROCEDURE IN DETAIL: Informed consent was verified. Zaynab Alvarez was properly identified, taken to the operating room, placed on the lithotripsy table in supine position. Anesthesia was uneventfully begun. The patient's left nephrolithiasis was localized with biplanar fluoroscopy. A total of 3000 shocks were delivered with fragmentation noted. The patient was then carefully and gently repositioned in dorsal lithotomy position with all pressure points well padded. Her genitalia were prepared and draped in usual sterile fashion. The cystoscope sheath was inserted the patient's urethra with obturator in place and the bladder was drained. Panendoscopy revealed no suspicious mucosal lesions, no tumors, no stones, and no diverticula. There was blanching of the patient's mucosa, possibly from chronic infections. Ureteral catheter was used to cannulate each ureter and retrograde ureteropyelograms were performed. Interpretation of retrograde ureteropyelography: Contrast was instilled in retrograde fashion bilaterally. There were filling defects in the left lower pole consistent with the now lithotripsy stone fragments as well as blood clots. In the right kidney, there were filling defects. In the right upper lateral calyx, even though on the CT, there was virtually no parenchyma overlying that portion of the collecting system, there was also a filling defect in the right lower pole corresponding to stone seen on CT as well. Nevertheless, unobstructed drainage was observed fluoroscopically bilaterally and there was no reason to stent the patient at this time. The patient's bladder was drained. Cystoscope was withdrawn. Pelvic examination revealed atrophic vaginitis with grade 1 cystocele. There were no abnormal palpable pelvic masses. No suspicious mucosal lesions were identified. The patient was then uneventfully reversed from anesthesia and taken to recovery room in stable condition. Explicit postop instructions were given. We will plan on observing the patient to ensure she does not spike a temp in light of her recurrent infections and manipulation performed today. Should she be afebrile postoperative day #1, she will be discharged home. Following this, the patient should return to the operating room on elective basis for a right ESWL with cystoscopy and retrograde pyelograms. Akbar MD Shari OH/MODL /[id number] cc: Isai Kelly MD
== END 2019-01-22 11:40 | disposition home or self-care (01) ==
LOC: ER 18:22 → ERHOLD 21:43 → IMCU 22:37
PROVIDERS: ADMIT Internal Medicine; ATTEND Internal Medicine
DX: N20.0 Calculus of kidney (principal); N39.0 Urinary tract infection, site not specified; I10 Essential (primary) hypertension; E66.9 Obesity, unspecified; Z68.39 Body mass index [BMI] 39.0-39.9, adult; N95.2 Postmenopausal atrophic vaginitis
CPT/HCPCS: 36415 ×3; 50590; 52005; 74176; 80048; 80053 ×2; 81001; 81025; 83970; 84550; 85025 ×3; 87086; 99284; C1758; G0378 ×3; J1100; J1170 ×3; J1450 ×3; J1956 ×2; J2001; J2250; J2370; J2405 ×2; J2704; J3490; J7030 ×2; J7050; Q9967; J3010

== ENCOUNTER 2019-05-14 19:56 | Day surgery (SDC) | payer BC ==
[~2019-05-14] VITALS: Ht 180.3 cm; Wt 92.1 kg
--- OUTSIDE RECORDS SUMMARY | 2019-05-14 20:00 | XMS REPORT | Continuity of Care Document ---
Author Author [email or web address] Address Unknown Phone Unavailable Care Team Providers Care Family Living Educator Name Role Phone [employer] Unavailable Unavailable Problems Problem Status Onset Date Classification Date Reported Comments Source Obstructive uropathy Active 11/02/2015 Problem 03/28/2018 [facility] Urinary tract infection Active 11/02/2015 Problem 03/28/2018 [facility] Kidney stone Active 04/20/2014 Problem 03/28/2018 [facility] Urinary tract infectious disease Active 04/20/2014 Problem 03/28/2018 [facility] Acute urinary tract infection Active 04/09/2014 Problem 03/28/2018 [facility] CALCULUS OF URETER Active 04/09/2014 Problem 03/28/2018 [facility] HYDRONEPHROSIS Active 04/09/2014 Problem 03/28/2018 [facility] Acute flank pain Active Problem 03/28/2018 [facility] Calculus of ureter Active Problem 03/28/2018 [facility] Obstruction of urinary tract Active Problem 03/28/2018 [facility] Medications Medication Details Route Status Patient Instructions Ordering Provider Order Date Source Acetaminophen/Hydrocodone Bitart (Model 10MG-325MG*) 1 Ea Tab, 1 Ea Oral Every 4 Hours as needed for Pain Active 03/28/2018 [facility] Diazepam 5 Mg Tablet, 10 Mg Oral Daily Active 07/24/2017 [facility] Aspirin (Aspir-Denisha) 325 Mg Tablet.dr, 235 Mg Oral Daily Active 11/01/2015 [facility] Alprazolam (Xanax) 1 Mg Tablet, 1 Mg Oral Three Times A Day as needed for Anxiety Active 09/22/2015 [facility] Clonidine Hcl 0.2 Mg Tablet, 0.2 Mg Oral Bedtime Active 09/22/2015 [facility] Nitrofurantoin Monohyd/M-Cryst (Macrobid 100 Mg Capsule) 100 Mg Capsule, 100 Mg Oral Twice A Day Active 09/22/2015 [facility] Aspirin 325 Mg Tabec, 325 Mg Oral Daily Active 04/27/2012 [facility] Hydrocodone Bit/Acetaminophen (Vicodin 5-500 Tablet) 1 Each Tablet, 1 Each Oral Q6 Prn Active 04/27/2012 [facility] Ketorolac Tromethamine (Toradol) 10 Mg Tablet, Active 04/22/2012 [facility] Acetaminophen With Codeine (Tylenol With Codeine #3 Tablet) 1 Each Tablet Every 4 Hours as needed for Pain Active [facility] Amitriptyline Hcl 50 Mg Tablet Bedtime Active [facility] Amlodipine Besylate 10 Mg Tablet Daily Active [facility] Aspirin 325 Mg Tablet Daily Active [facility] Diazepam 10 Mg Tablet Twice A Day as needed for Anxiety Active [facility] Fluconazole (Diflucan) 100 Mg Tablet Daily Active [facility] Ibuprofen 400 Mg Tablet Three Times A Day as needed for Pain Active [facility] Lamotrigine 100 Mg Tablet Daily Active [facility] Lisinopril 10 Mg Tablet Bedtime Active [facility] Ondansetron (Zofran Odt) 4 Mg Tab.rapdis Every 6 Hours as needed for Nausea And Vomiting Active [facility] Oxybutynin Chloride 5 Mg Tablet Three Times A Day Active [facility] Zolpidem Tartrate (Ambien) 10 Mg Tablet Bedtime Active [facility] Allergies, Adverse Reactions, Alerts No Known Medication Allergies Immunizations No Data Provided for This Section Results Order Name Results Value Reference Range Date Interpretation Comments Source Automated blood basophil count (count/volume) Automated blood basophil count (count/volume) 0.0 0.0 - 0.1 03/27/2018 [facility] Automated blood basophil count as percentage of total leukocytes Automated blood basophil count as percentage of total leukocytes 0.2 0.0 - 1.0 03/27/2018 [facility] Automated blood eosinophil count Automated blood eosinophil count 0.0 0.0 - 0.4 03/27/2018 [facility] Automated blood eosinophil count as percentage of total leukocytes Automated blood eosinophil count as percentage of total leukocytes 0.2 0.0 - 6.0 03/27/2018 [facility] Automated blood hematocrit (volume fraction) Automated blood hematocrit (volume fraction) 35.9 34.2 - 44.1 03/27/2018 [facility] Automated blood lymphocyte count as percentage ot total leukocytes Automated blood lymphocyte count as percentage ot total leukocytes 25.2 18.0 - 39.1 03/27/2018 [facility] Automated blood monocyte count as percentage of total leukocytes Automated blood monocyte count as percentage of total leukocytes 6.4 4.4 - 11.3 03/27/2018 [facility] Automated blood neutrophil count Automated blood neutrophil count 6.7 2.1 - 6.9 03/27/2018 [facility] Automated blood platelet count (count/volume) Automated blood platelet count (count/volume) 210 140 - 360 03/27/2018 [facility] Automated blood segmented neutrophil count as percentage of total leukocytes Automated blood segmented neutrophil count as percentage of total leukocytes 67.4 38.7 - 80.0 03/27/2018 [facility] Automated erythrocyte mean corpuscular hemoglobin (mass per erythrocyte) Automated erythrocyte mean corpuscular hemoglobin (mass per erythrocyte) 29.2 28 - 32 03/27/2018 [facility] Automated erythrocyte mean corpuscular hemoglobin concentration measurement (mass/volume) Automated erythrocyte mean corpuscular hemoglobin concentration measurement (mass/volume) 34.3 31 - 35 03/27/2018 [facility] Automated erythrocyte mean corpuscular volume Automated erythrocyte mean corpuscular volume 85.3 81 - 99 03/27/2018 [facility] Blood erythrocytes automated count (number/volume) Blood erythrocytes automated count (number/volume) 4.21 3.6 - 5.1 03/27/2018 [facility] Blood hemoglobin measurement (moles/volume) Blood hemoglobin measurement (moles/volume) 12.3 12.0 - 16.0 03/27/2018 [facility] Blood leukocytes automated count (number/volume) Blood leukocytes automated count (number/volume) 9.92 4.8 - 10.8 03/27/2018 [facility] Blood lymphocytes count (number/volume) Blood lymphocytes count (number/volume) 2.5 1.0 - 3.2 03/27/2018 [facility] Blood monocytes automated count (number/volume) Blood monocytes automated count (number/volume) 0.6 0.2 - 0.8 03/27/2018 [facility] Estimated glomerular filtration rate (GFR) determination Estimated glomerular filtration rate (GFR) determination >60 60 03/27/2018 [facility] Glucose measurement Glucose measurement 107 74 - 118 03/27/2018 [facility] Serum or plasma anion gap Serum or plasma anion gap 13.1 8 - 16 03/27/2018 [facility] Serum or plasma calcium measurement (mass/volume) Serum or plasma calcium measurement (mass/volume) 8.6 8.4 - 10.2 03/27/2018 [facility] Serum or plasma carbon dioxide, total measurement (moles/volume) Serum or plasma carbon dioxide, total measurement (moles/volume) 23 22 - 29 03/27/2018 [facility] Serum or plasma chloride measurement (moles/volume) Serum or plasma chloride measurement (moles/volume) 111 98 - 107 03/27/2018 [facility] Serum or plasma creatinine measurement (mass/volume) Serum or plasma creatinine measurement (mass/volume) 0.83 0.57 - 1.11 03/27/2018 [facility] Serum or plasma potassium measurement (moles/volume) Serum or plasma potassium measurement (moles/volume) 4.1 3.5 - 5.1 03/27/2018 [facility] Serum or plasma sodium measurement (moles/volume) Serum or plasma sodium measurement (moles/volume) 143 136 - 145 03/27/2018 [facility] Serum or plasma urea nitrogen measurement (mass/volume) Serum or plasma urea nitrogen measurement (mass/volume) 13 7 - 26 03/27/2018 [facility] Serum or plasma urea nitrogen/creatinine mass ratio Serum or plasma urea nitrogen/creatinine mass ratio 16 6 - 25 03/27/2018 [facility] Red Cell Distribution Width 13.6 11.7 - 14.4 03/27/2018 [facility] IM GRANULOCYTES % 0.6 0.0 - 1.0 03/27/2018 [facility] Absolute Immature Granulocyte (auto 0.06 0 - 0.1 03/27/2018 [facility] Automated urine sediment leukocyte count by microscopy (number/high power field) Automated urine sediment leukocyte count by microscopy (number/high power field) <50 0 - 5 03/25/2018 [facility] Bacteria detection in urine sediment by light microscopy Bacteria detection in urine sediment by light microscopy FEW NONE 03/25/2018 [facility] Epithelial cells detection in urine sediment by light microscopy Epithelial cells detection in urine sediment by light microscopy RARE NONE 03/25/2018 [facility] Erythrocytes detection in urine sediment by light microscopy Erythrocytes detection in urine sediment by light microscopy <10 0 - 5 03/25/2018 [facility] Mucus detection in urine sediment by light microscopy Mucus detection in urine sediment by light microscopy FEW RARE 03/25/2018 [facility] Plasma globulin measurement (mass/volume) Plasma globulin measurement (mass/volume) 3.3 2.3 - 3.5 03/25/2018 [facility] Serum or plasma alanine aminotransferase measurement (enzymatic activity/volume) Serum or plasma alanine aminotransferase measurement (enzymatic activity/volume) 20 0 - 55 03/25/2018 [facility] Serum or plasma albumin measurement (mass/volume) Serum or plasma albumin measurement (mass/volume) 4.0 3.5 - 5.0 03/25/2018 [facility] Serum or plasma albumin/globulin mass ratio Serum or plasma albumin/globulin mass ratio 1.2 0.8 - 2.0 03/25/2018 [facility] Serum or plasma alkaline phosphatase measurement (enzymatic activity/volume) Serum or plasma alkaline phosphatase measurement (enzymatic activity/volume) 84 40 - 150 03/25/2018 [facility] Serum or plasma protein measurement (mass/volume) Serum or plasma protein measurement (mass/volume) 7.3 6.5 - 8.1 03/25/2018 [facility] Serum or plasma total bilirubin measurement (mass/volume) Serum or plasma total bilirubin measurement (mass/volume) 0.3 0.2 - 1.2 03/25/2018 [facility] Specific gravity of Urine by Test strip Specific gravity of Urine by Test strip 1.020 1.010 - 1.025 03/25/2018 [facility] Urine clarity Urine clarity CLEAR CLEAR 03/25/2018 [facility] Urine color determination Urine color determination YELLOW YELLOW 03/25/2018 [facility] Urine erythrocytes detection Urine erythrocytes detection TRACE NEGATIVE 03/25/2018 [facility] Urine glucose detection Urine glucose detection NEGATIVE NEGATIVE 03/25/2018 [facility] Urine ketones detection by automated test strip Urine ketones detection by automated test strip NEGATIVE NEGATIVE 03/25/2018 [facility] Urine leukocyte esterase detection by dipstick Urine leukocyte esterase detection by dipstick TRACE NEGATIVE 03/25/2018 [facility] Urine nitrite detection Urine nitrite detection NEGATIVE NEGATIVE 03/25/2018 [facility] Urine pH measurement by automated test strip Urine pH measurement by automated test strip 6 5 - 7 03/25/2018 [facility] Urine protein measurement by test strip (mass/volume) Urine protein measurement by test strip (mass/volume) 1+ NEGATIVE 03/25/2018 [facility] Urine total bilirubin measurement (mass/volume) Urine total bilirubin measurement (mass/volume) NEGATIVE NEGATIVE 03/25/2018 [facility] Urine urobilinogen measurement by test strip (mass/volume) Urine urobilinogen measurement by test strip (mass/volume) 0.2 0.2 - 1 03/25/2018 [facility] Aspartate Amino Transf (AST/SGOT) 22 5 - 34 03/25/2018 [facility] Yeast detection in urine sediment by light microscopy Yeast detection in urine sediment by light microscopy FEW NONE 07/24/2017 [facility] Serum or plasma magnesium measurement (mass/volume) Serum or plasma magnesium measurement (mass/volume) 1.7 1.3 - 2.1 07/06/2017 [facility] Urine human chorionic gonadotropin (hCG) detection Urine human chorionic gonadotropin (hCG) detection NEGATIVE NEGATIVE 07/04/2017 [facility] Bacterial urine culture Bacterial urine culture Urine Culture [facility] Pathology Reports No Data Provided for This Section Diagnostic Reports No Data Provided for This Section Consultation Notes No Data Provided for This Section Discharge Summaries No Data Provided for This Section History and Physicals No Data Provided for This Section Vital Signs No Data Provided for This Section Encounters Location Location Details Encounter Type Encounter Number Reason For Visit Attending Provider ADM Date DC Date Status Source Discharged Inpatient [id number] HUGO PINA MD 07/04/2017 07/07/2017 [facility] Discharged Inpatient [id number] HUGO PINA MD 07/24/2017 07/27/2017 [facility] Discharged Inpatient (obs) [id number] NI KEE MD 03/26/2018 03/28/2018 [facility] Procedures Procedure Code Date Perfomer Comments Source Extracorporeal shock wave lithotripsy (ESWL) [id number] 03/26/2018 [facility] Cystoscopy with retrograde pyelography [id number] 03/26/2018 [facility] EXTIRPATION OF MATTER FROM RIGHT KIDNEY, ENDO [id number] 07/26/2017 [facility] EXTIRPATION OF MATTER FROM LEFT KIDNEY, ENDO [id number] 07/26/2017 [facility] DILATION OF BILATERAL URETERS WITH INTRALUMINAL DEVICE, ENDO [id number] 07/26/2017 [facility] EXTIRPATION OF MATTER FROM RIGHT URETER, ENDO [id number] 07/05/2017 [facility] DILATION OF RIGHT URETER WITH INTRALUMINAL DEVICE, ENDO [id number] 07/05/2017 [facility] FLUOROSCOPY KIDNEY, URETER, BLADDER, R W L OSM CONTRAST [id number] 07/05/[address] [facility] [address] of abdomen and pelvis without contrast [id number] 07/04/2017 [facility] Assessment and Plan No Data Provided for This Section Plan of Care Plan of Care Date Source Discharge Date 03/28/18 11:30am Disposition HOME, SELF-CARE Instructions/Education Provided Kidney Stones Prescriptions See Medication Section Referrals SHELLIE VALDERRAMA MD (Urology) Order Date: 1 Week Entered Date: 03/28/2018 10:32am Address: [address] [place] [id number] Additional Instructions/Education STRAIN URINE AT ALL TIMES. COLLECT STONE OR SEDIMENT IF IT IS PASSED AND TAKE TO DR. VALDERRAMA OFFICE. F/U WITH DR. VALDERRAMA IN 1-2 WEEKS F/U WITH PCP 03/28/2018 [facility] Social History Social History Date Source Social History Problem Response Recorded Date/Time Onset [...] No 07/24/2017 5:25pm Not Applicable Not Applicable 03/28/2018 [facility] Family History No Data Provided for This Section Advance Directives Order Name Results Value Date Source Advance Directives Advance Directives Directive Response Recorded Date/Time Does the patient have an advance directive? No 03/26/18 2:30pm If yes, is advance directive on file with [facility]? No 03/26/18 2:30pm If not on file with [facility] will patient provide a copy? No 03/26/18 2:30pm Do you have a Directive to Physician? No 03/25/18 8:10pm Do you have a Medical Power of [employer]? No 03/25/18 8:10pm Do you have an [...] patient rights and responsibilities? Yes 03/25/18 8:10pm 03/28/2018 [facility] Functional Status No Data Provided for This Section
[2019-05-14] MEDS ORDERED: KETOROLAC TROMETHAMINE 30 MG/ML VIAL IV STA (21:26)
[2019-05-14] MEDS ORDERED: SODIUM CHLORIDE 0.9% 1000ML 1,000 ML IV SCH (21:30)
[2019-05-14 21:41] LABS: BASOPHILS % 0.4 % (0.0-1.0); EOSINOPHILS # (AUTO) 0.2 (0.0-0.4); HEMATOCRIT 42.9 % (34.2-44.1); HEMOGLOBIN 14.6 g/dL (12.0-16.0); LYMPHOCYTES # (AUTO) 3.3 (1.0-3.2); MEAN CORPUSCULAR VOLUME 85.1 fL (81-99); MONOCYTES # (AUTO) 0.6 (0.2-0.8); MONOCYTES % 5.4 % (4.4-11.3); NEUTROPHILS # (AUTO) 6.2 (2.1-6.9); NEUTROPHILS % 59.6 % (38.7-80.0); PLATELET COUNT 281 x10e3/uL (140-360); RED BLOOD COUNT 5.04 x10e6/uL (3.6-5.1); RED CELL DISTRIBUTION WIDTH 13.8 % (11.7-14.4)
[2019-05-14 21:49] LABS: BILIRUBIN,URINE NEGATIVE (NEGATIVE); CLARITY,URINE SL CLOUDY (CLEAR); COLOR,URINE YELLOW (YELLOW); KETONES,URINE NEGATIVE (NEGATIVE); LEUKOCYTE ESTERASE ,URINE NEGATIVE (NEGATIVE); NITRITE,URINE NEGATIVE (NEGATIVE); PROTEIN,URINE DIPSTICK 1+ (NEGATIVE); URINE UROBILINOGEN 0.2 mg/dL (0.2 - 1)
[2019-05-14 21:53] LABS: AMPHETAMINES SCREEN,URINE NEGATIVE (NEGATIVE); BENZODIAZEPINES SCREEN,URINE POSITIVE (NEGATIVE); PHENCYCLIDINE SCREEN,URINE NEGATIVE (NEGATIVE); PREGNANCY TEST, URINE NEGATIVE (NEGATIVE)
[2019-05-14 21:58] LABS: ALANINE AMINOTRANSFERASE 24 IU/L (0-55); ALBUMIN 3.9 g/dL (3.5-5.0); ALBUMIN/GLOBULIN RATIO 1.1 (0.8-2.0); ALKALINE PHOSPHATASE 87 IU/L (40-150); ANION GAP 14.5 mmol/L (8-16); BLOOD UREA NITROGEN 9 mg/dL (7-26); BUN/CREATININE RATIO 10 (6-25); CALCIUM 9.9 mg/dL (8.4-10.2); CARBON DIOXIDE 28 mmol/L (22-29); CHLORIDE 102 mmol/L (98-107); CREATININE, SERUM 0.92 mg/dL (0.57-1.11); EST GLOMERULAR FILTRATION RATE > 60 ML/MIN (60-); GLUCOSE 110 mg/dL (74-118); POTASSIUM 3.5 mmol/L (3.5-5.1); SODIUM 141 mmol/L (136-145)
--- NOTE | 2019-05-14 22:00 | NUR ---
PT PRESSED CALL BUENO, STATES PAIN MEDICATION HAS NOT HELPED YET. ADVISED IT TAKES A FEW MINUTES TO START WORKING. PT STATES NORMALLY WHEN SHE GETS PAIN MEDICATION IT MAKES HER TINGLE FROM HER TOES TO HER HEAD AND THIS TIME SHE DID NOT FEEL ANYTHING. ADVISED TORADOL IS NOT A NARCOTI PAIN MEDICATION AND USUALLY DOES HAVE THOSE SIDE EFFECTS
[2019-05-14 22:02] LABS: BACTERIA,URINE FEW /HPF; EPITHELIAL CELLS,URINE MANY /LPF; TRANSITIONAL EPI CELLS,URINE MODERATE
[2019-05-14 22:09] LABS: AMYLASE 69 U/L (25-125); LIPASE 27 U/L (8-78)
--- NOTE | 2019-05-14 22:46 | Diagnostic Imaging Report ---
EXAM: CT Abdomen and Pelvis WITHOUT contrast INDICATION: ^R/O KIDNEY STONE COMPARISON: CT dated 01/20/2019 TECHNIQUE: Abdomen and pelvis were scanned utilizing a multidetector helical scanner from the lung base to the pubic symphysis without administration of IV contrast. Absence of intravenous contrast decreases sensitivity for detection of focal lesions and vascular pathology. Coronal and sagittal reformations were obtained. Routine protocol was performed. IV CONTRAST: None ORAL CONTRAST: None. COMPLICATIONS: None RADIATION DOSE: Total DLP: 812.31 mGy*cm Estimated effective dose: (DLP x 0.015 x size factor) mSv CTDIvol has been reviewed. It is below the limits set by the Radiation Protocol Committee (RPC). FINDINGS: LINES and TUBES: None. LOWER THORAX: Mild dependent atelectasis. HEPATOBILIARY: Hepatic steatosis. Otherwise, unenhanced liver is unremarkable. No biliary ductal dilation. GALLBLADDER: No radio-opaque stones or sludge. No wall thickening. SPLEEN: No splenomegaly. Mild capsular calcification. PANCREAS: No focal masses or ductal dilatation. ADRENALS: No adrenal nodules KIDNEYS/URETERS: No hydronephrosis. Limited for evaluation of renal parenchyma without intravenous contrast. Again seen right renal superior pole cortical atrophy. Several bilateral subcentimeter nonobstructive renal calculi, the largest in the right superior pole measuring 7 mm and in the left inferior pole measuring 8 mm. GI TRACT: No abnormal distention, wall thickening, or evidence of bowel obstruction. Appendix is normal. PELVIC ORGANS/BLADDER: Again seen large pelvic phleboliths. Prominent upper vaginal/cervical area, unchanged. Bladder is unremarkable. LYMPH NODES: No lymphadenopathy. VESSELS: Unremarkable. PERITONEUM / RETROPERITONEUM: No free air or fluid. BONES: Mild degenerative changes of spine, most notable at L5-S1. SOFT TISSUES: Unremarkable. IMPRESSION: 1. Bilateral subcentimeter nonobstructive renal calculi. 2. No evidence of obstructive urolithiasis. 3. Hepatic steatosis. 4. Prominent upper vaginal/cervical area. Recommend correlation with physical exam. Signed by: Dr. Mayito Pryor MD on 05/14/2019 10:42 PM
[2019-05-14] MEDS ORDERED: ONDANSETRON HCL INJ 2MG/ML 2ML 2 MG/ML VIAL IV PRN (23:30)
--- OUTSIDE RECORDS SUMMARY | 2019-05-14 23:31 | XMS REPORT | Continuity of Care Document ---
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 President Corporate Communications Name Role Phone [employer] Unavailable Unavailable Problems Problem Status Onset Date Classification Date Reported Comments Source Obstructive uropathy Active 11/02/2015 Problem 03/28/2018 [facility] Urinary tract infection Active 11/02/2015 Problem 03/28/2018 [facility] Kidney stone Active 04/20/2014 Problem 03/28/2018 [facility] Urinary tract infectious disease Active 04/20/2014 Problem 03/28/2018 [facility] Acute urinary tract infection Active 04/09/2014 Problem 03/28/2018 [facility] CALCULUS OF URETER Active 04/09/2014 Problem 03/28/2018 [facility] HYDRONEPHROSIS Active 04/09/2014 Problem 03/28/2018 [facility] Acute flank pain Active Problem 03/28/2018 [facility] Calculus of ureter Active Problem 03/28/2018 [facility] Obstruction of urinary tract Active Problem 03/28/2018 [facility] Medications Medication Details Route Status Patient Instructions Ordering Provider Order Date Source Acetaminophen/Hydrocodone Bitart (Stanton 10MG-325MG*) 1 Ea Tab, 1 Ea Oral Every 4 Hours as needed for Pain Active 03/28/2018 [facility] Diazepam 5 Mg Tablet, 10 Mg Oral Daily Active 07/24/2017 [facility] Aspirin (Aspir-Denisha) 325 Mg Tablet.dr, 235 Mg Oral Daily Active 11/01/2015 [facility] Alprazolam (Xanax) 1 Mg Tablet, 1 Mg Oral Three Times A Day as needed for Anxiety Active 09/22/2015 [facility] Clonidine Hcl 0.2 Mg Tablet, 0.2 Mg Oral Bedtime Active 09/22/2015 [facility] Nitrofurantoin Monohyd/M-Cryst (Macrobid 100 Mg Capsule) 100 Mg Capsule, 100 Mg Oral Twice A Day Active 09/22/2015 [facility] Aspirin 325 Mg Tabec, 325 Mg Oral Daily Active 04/27/2012 [facility] Hydrocodone Bit/Acetaminophen (Vicodin 5-500 Tablet) 1 Each Tablet, 1 Each Oral Q6 Prn Active 04/27/2012 [facility] Ketorolac Tromethamine (Toradol) 10 Mg Tablet, Active 04/22/2012 [facility] Acetaminophen With Codeine (Tylenol With Codeine #3 Tablet) 1 Each Tablet Every 4 Hours as needed for Pain Active [facility] Amitriptyline Hcl 50 Mg Tablet Bedtime Active [facility] Amlodipine Besylate 10 Mg Tablet Daily Active [facility] Aspirin 325 Mg Tablet Daily Active [facility] Diazepam 10 Mg Tablet Twice A Day as needed for Anxiety Active [facility] Fluconazole (Diflucan) 100 Mg Tablet Daily Active [facility] Ibuprofen 400 Mg Tablet Three Times A Day as needed for Pain Active [facility] Lamotrigine 100 Mg Tablet Daily Active [facility] Lisinopril 10 Mg Tablet Bedtime Active [facility] Ondansetron (Zofran Odt) 4 Mg Tab.rapdis Every 6 Hours as needed for Nausea And Vomiting Active [facility] Oxybutynin Chloride 5 Mg Tablet Three Times A Day Active [facility] Zolpidem Tartrate (Ambien) 10 Mg Tablet Bedtime Active [facility] Allergies, Adverse Reactions, Alerts No Known Medication Allergies Immunizations No Data Provided for This Section Results Order Name Results Value Reference Range Date Interpretation Comments Source Automated blood basophil count (count/volume) Automated blood basophil count (count/volume) 0.0 0.0 - 0.1 03/27/2018 [facility] Automated blood basophil count as percentage of total leukocytes Automated blood basophil count as percentage of total leukocytes 0.2 0.0 - 1.0 03/27/2018 [facility] Automated blood eosinophil count Automated blood eosinophil count 0.0 0.0 - 0.4 03/27/2018 [facility] Automated blood eosinophil count as percentage of total leukocytes Automated blood eosinophil count as percentage of total leukocytes 0.2 0.0 - 6.0 03/27/2018 [facility] Automated blood hematocrit (volume fraction) Automated blood hematocrit (volume fraction) 35.9 34.2 - 44.1 03/27/2018 [facility] Automated blood lymphocyte count as percentage ot total leukocytes Automated blood lymphocyte count as percentage ot total leukocytes 25.2 18.0 - 39.1 03/27/2018 [facility] Automated blood monocyte count as percentage of total leukocytes Automated blood monocyte count as percentage of total leukocytes 6.4 4.4 - 11.3 03/27/2018 [facility] Automated blood neutrophil count Automated blood neutrophil count 6.7 2.1 - 6.9 03/27/2018 [facility] Automated blood platelet count (count/volume) Automated blood platelet count (count/volume) 210 140 - 360 03/27/2018 [facility] Automated blood segmented neutrophil count as percentage of total leukocytes Automated blood segmented neutrophil count as percentage of total leukocytes 67.4 38.7 - 80.0 03/27/2018 [facility] Automated erythrocyte mean corpuscular hemoglobin (mass per erythrocyte) Automated erythrocyte mean corpuscular hemoglobin (mass per erythrocyte) 29.2 28 - 32 03/27/2018 [facility] Automated erythrocyte mean corpuscular hemoglobin concentration measurement (mass/volume) Automated erythrocyte mean corpuscular hemoglobin concentration measurement (mass/volume) 34.3 31 - 35 03/27/2018 [facility] Automated erythrocyte mean corpuscular volume Automated erythrocyte mean corpuscular volume 85.3 81 - 99 03/27/2018 [facility] Blood erythrocytes automated count (number/volume) Blood erythrocytes automated count (number/volume) 4.21 3.6 - 5.1 03/27/2018 [facility] Blood hemoglobin measurement (moles/volume) Blood hemoglobin measurement (moles/volume) 12.3 12.0 - 16.0 03/27/2018 [facility] Blood leukocytes automated count (number/volume) Blood leukocytes automated count (number/volume) 9.92 4.8 - 10.8 03/27/2018 [facility] Blood lymphocytes count (number/volume) Blood lymphocytes count (number/volume) 2.5 1.0 - 3.2 03/27/2018 [facility] Blood monocytes automated count (number/volume) Blood monocytes automated count (number/volume) 0.6 0.2 - 0.8 03/27/2018 [facility] Estimated glomerular filtration rate (GFR) determination Estimated glomerular filtration rate (GFR) determination >60 60 03/27/2018 [facility] Glucose measurement Glucose measurement 107 74 - 118 03/27/2018 [facility] Serum or plasma anion gap Serum or plasma anion gap 13.1 8 - 16 03/27/2018 [facility] Serum or plasma calcium measurement (mass/volume) Serum or plasma calcium measurement (mass/volume) 8.6 8.4 - 10.2 03/27/2018 [facility] Serum or plasma carbon dioxide, total measurement (moles/volume) Serum or plasma carbon dioxide, total measurement (moles/volume) 23 22 - 29 03/27/2018 [facility] Serum or plasma chloride measurement (moles/volume) Serum or plasma chloride measurement (moles/volume) 111 98 - 107 03/27/2018 [facility] Serum or plasma creatinine measurement (mass/volume) Serum or plasma creatinine measurement (mass/volume) 0.83 0.57 - 1.11 03/27/2018 [facility] Serum or plasma potassium measurement (moles/volume) Serum or plasma potassium measurement (moles/volume) 4.1 3.5 - 5.1 03/27/2018 [facility] Serum or plasma sodium measurement (moles/volume) Serum or plasma sodium measurement (moles/volume) 143 136 - 145 03/27/2018 [facility] Serum or plasma urea nitrogen measurement (mass/volume) Serum or plasma urea nitrogen measurement (mass/volume) 13 7 - 26 03/27/2018 [facility] Serum or plasma urea nitrogen/creatinine mass ratio Serum or plasma urea nitrogen/creatinine mass ratio 16 6 - 25 03/27/2018 [facility] Red Cell Distribution Width 13.6 11.7 - 14.4 03/27/2018 [facility] IM GRANULOCYTES % 0.6 0.0 - 1.0 03/27/2018 [facility] Absolute Immature Granulocyte (auto 0.06 0 - 0.1 03/27/2018 [facility] Automated urine sediment leukocyte count by microscopy (number/high power field) Automated urine sediment leukocyte count by microscopy (number/high power field) <50 0 - 5 03/25/2018 [facility] Bacteria detection in urine sediment by light microscopy Bacteria detection in urine sediment by light microscopy FEW NONE 03/25/2018 [facility] Epithelial cells detection in urine sediment by light microscopy Epithelial cells detection in urine sediment by light microscopy RARE NONE 03/25/2018 [facility] Erythrocytes detection in urine sediment by light microscopy Erythrocytes detection in urine sediment by light microscopy <10 0 - 5 03/25/2018 [facility] Mucus detection in urine sediment by light microscopy Mucus detection in urine sediment by light microscopy FEW RARE 03/25/2018 [facility] Plasma globulin measurement (mass/volume) Plasma globulin measurement (mass/volume) 3.3 2.3 - 3.5 03/25/2018 [facility] Serum or plasma alanine aminotransferase measurement (enzymatic activity/volume) Serum or plasma alanine aminotransferase measurement (enzymatic activity/volume) 20 0 - 55 03/25/2018 [facility] Serum or plasma albumin measurement (mass/volume) Serum or plasma albumin measurement (mass/volume) 4.0 3.5 - 5.0 03/25/2018 [facility] Serum or plasma albumin/globulin mass ratio Serum or plasma albumin/globulin mass ratio 1.2 0.8 - 2.0 03/25/2018 [facility] Serum or plasma alkaline phosphatase measurement (enzymatic activity/volume) Serum or plasma alkaline phosphatase measurement (enzymatic activity/volume) 84 40 - 150 03/25/2018 [facility] Serum or plasma protein measurement (mass/volume) Serum or plasma protein measurement (mass/volume) 7.3 6.5 - 8.1 03/25/2018 [facility] Serum or plasma total bilirubin measurement (mass/volume) Serum or plasma total bilirubin measurement (mass/volume) 0.3 0.2 - 1.2 03/25/2018 [facility] Specific gravity of Urine by Test strip Specific gravity of Urine by Test strip 1.020 1.010 - 1.025 03/25/2018 [facility] Urine clarity Urine clarity CLEAR CLEAR 03/25/2018 [facility] Urine color determination Urine color determination YELLOW YELLOW 03/25/2018 [facility] Urine erythrocytes detection Urine erythrocytes detection TRACE NEGATIVE 03/25/2018 [facility] Urine glucose detection Urine glucose detection NEGATIVE NEGATIVE 03/25/2018 [facility] Urine ketones detection by automated test strip Urine ketones detection by automated test strip NEGATIVE NEGATIVE 03/25/2018 [facility] Urine leukocyte esterase detection by dipstick Urine leukocyte esterase detection by dipstick TRACE NEGATIVE 03/25/2018 [facility] Urine nitrite detection Urine nitrite detection NEGATIVE NEGATIVE 03/25/2018 [facility] Urine pH measurement by automated test strip Urine pH measurement by automated test strip 6 5 - 7 03/25/2018 [facility] Urine protein measurement by test strip (mass/volume) Urine protein measurement by test strip (mass/volume) 1+ NEGATIVE 03/25/2018 [facility] Urine total bilirubin measurement (mass/volume) Urine total bilirubin measurement (mass/volume) NEGATIVE NEGATIVE 03/25/2018 [facility] Urine urobilinogen measurement by test strip (mass/volume) Urine urobilinogen measurement by test strip (mass/volume) 0.2 0.2 - 1 03/25/2018 [facility] Aspartate Amino Transf (AST/SGOT) 22 5 - 34 03/25/2018 [facility] Yeast detection in urine sediment by light microscopy Yeast detection in urine sediment by light microscopy FEW NONE 07/24/2017 [facility] Serum or plasma magnesium measurement (mass/volume) Serum or plasma magnesium measurement (mass/volume) 1.7 1.3 - 2.1 07/06/2017 [facility] Urine human chorionic gonadotropin (hCG) detection Urine human chorionic gonadotropin (hCG) detection NEGATIVE NEGATIVE 07/04/2017 [facility] Bacterial urine culture Bacterial urine culture Urine Culture [facility] Pathology Reports No Data Provided for This [...] Date DC Date Status Source Discharged Inpatient [id number] HUGO PINA MD 07/04/2017 07/07/2017 [facility] Discharged Inpatient [id number] HUGO PINA MD 07/24/2017 07/27/2017 [facility] Discharged Inpatient (obs) [id number] NI KEE MD 03/26/2018 03/28/2018 [facility] Procedures Procedure Code Date Perfomer Comments Source Extracorporeal shock wave lithotripsy (ESWL) [id number] 03/26/2018 [facility] Cystoscopy with retrograde pyelography [id number] 03/26/2018 [facility] EXTIRPATION OF MATTER FROM RIGHT KIDNEY, ENDO [id number] 07/26/2017 [facility] EXTIRPATION OF MATTER FROM LEFT KIDNEY, ENDO [id number] 07/26/2017 [facility] DILATION OF BILATERAL URETERS WITH INTRALUMINAL DEVICE, ENDO [id number] 07/26/2017 [facility] EXTIRPATION OF MATTER FROM RIGHT URETER, ENDO [id number] 07/05/2017 [facility] DILATION OF RIGHT URETER WITH INTRALUMINAL DEVICE, ENDO [id number] 07/05/2017 [facility] FLUOROSCOPY KIDNEY, URETER, BLADDER, R W L OSM CONTRAST [id number] 07/05/2017 [facility] CT of abdomen and pelvis without contrast [id number] 07/04/2017 [facility] Assessment and Plan No Data Provided for This Section Plan of Care Plan of Care Date Source Discharge Date 03/28/18 11:30am Disposition HOME, SELF-CARE Instructions/Education Provided Kidney Stones Prescriptions See Medication Section Referrals SHELLIE VALDERRAMA MD (Urology) Order Date: 1 Week Entered Date: 03/28/2018 10:32am Address: [address] [place] [id number] Additional Instructions/Education STRAIN URINE AT ALL TIMES. COLLECT STONE OR SEDIMENT IF IT IS PASSED AND TAKE TO DR. VALDERRAMA OFFICE. F/U WITH DR. VALDERRAMA IN 1-2 WEEKS F/U WITH PCP 03/28/2018 [facility] Social History Social History Date Source Social [...] 07/24/2017 5:25pm Not Applicable Not Applicable 03/28/2018 [facility] Family History No Data Provided for This Section Advance Directives Order Name Results Value Date Source Advance Directives Advance Directives Directive Response Recorded Date/Time Does the patient have an advance directive? No 03/26/18 2:30pm If yes, is advance directive on file with [facility]? No 03/26/18 2:30pm If not on file with [facility] will patient provide a copy? No 03/26/18 2:30pm Do you have a Directive to Physician? No 03/25/18 8:10pm Do you have a Medical Power of Grazing Examiner? No 03/25/18 8:10pm Do you have an [...] rights and responsibilities? Yes 03/25/18 8:10pm 03/28/2018 [facility] Functional Status No Data Provided for This Section
[2019-05-15] MEDS: MORPHINE SULFATE INJ 4 MG/ML INJ 1ML IV PRN ×2 (00:33→04:39)
[2019-05-15] MEDS: SODIUM CHLORIDE 0.9% 1000ML 1,000 ML IV SCH ×2 (00:33→07:54)
--- NOTE | 2019-05-15 00:34 | NUR ---
pt reports pain 8/10 after toradol. requesting pain meds, medicated per orders
--- NOTE | 2019-05-15 00:36 | NUR ---
pt aware of npo status, verbalized understanding.
[2019-05-15] MEDS ORDERED: DEXTROSE 50% SYRINGE 50 ML IV PRN (03:30)
--- NOTE | 2019-05-15 04:40 | NUR ---
PT PRESSED CALL [facility], REQUESTING PAIN MEDICATION, MEDICATED PER ORDERS
--- NOTE | 2019-05-15 07:01 | NUR ---
REPORT TO MED-SURG HOLD NURSE
[2019-05-15 07:15] VITALS: BP 133/76
[2019-05-15 08:14] VITALS: BP 133/76
[2019-05-15 08:15] VITALS: BP 133/76
--- OUTSIDE RECORDS SUMMARY | 2019-05-15 09:27 | XMS REPORT | Continuity of Care Document ---
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 Name Role Phone [facility] [employer] Unavailable Unavailable Problems Problem Status Onset Date Classification Date Reported Comments Source Obstructive uropathy Active 11/02/2015 Problem 03/28/2018 [facility] Urinary tract infection Active 11/02/2015 Problem 03/28/2018 [facility] Kidney stone Active 04/20/2014 Problem 03/28/2018 [facility] Urinary tract infectious disease Active 04/20/2014 Problem 03/28/2018 [facility] Acute urinary tract infection Active 04/09/2014 Problem 03/28/2018 [facility] CALCULUS OF URETER Active 04/09/2014 Problem 03/28/2018 [facility] HYDRONEPHROSIS Active 04/09/2014 Problem 03/28/2018 [facility] Acute flank pain Active Problem 03/28/2018 [facility] Calculus of ureter Active Problem 03/28/2018 [facility] Obstruction of urinary tract Active Problem 03/28/2018 [facility] Medications Medication Details Route Status Patient Instructions Ordering Provider Order Date Source Acetaminophen/Hydrocodone Bitart ([place] 10MG-325MG*) 1 Ea Tab, 1 Ea Oral Every 4 Hours as needed for Pain Active 03/28/2018 [facility] Diazepam 5 Mg Tablet, 10 Mg Oral Daily Active 07/24/2017 [facility] Aspirin (Aspir-Denisha) 325 Mg Tablet.dr, 235 Mg Oral Daily Active 11/01/2015 [facility] Alprazolam (Xanax) 1 Mg Tablet, 1 Mg Oral Three Times A Day as needed for Anxiety Active 09/22/2015 [facility] Clonidine Hcl 0.2 Mg Tablet, 0.2 Mg Oral Bedtime Active 09/22/2015 [facility] Nitrofurantoin Monohyd/M-Cryst (Macrobid 100 Mg Capsule) 100 Mg Capsule, 100 Mg Oral Twice A Day Active 09/22/2015 [facility] Aspirin 325 Mg Tabec, 325 Mg Oral Daily Active 04/27/2012 [facility] Hydrocodone Bit/Acetaminophen (Vicodin 5-500 Tablet) 1 Each Tablet, 1 Each Oral Q6 Prn Active 04/27/2012 [facility] Ketorolac Tromethamine (Toradol) 10 Mg Tablet, Active 04/22/2012 [facility] Acetaminophen With Codeine (Tylenol With Codeine #3 Tablet) 1 Each Tablet Every 4 Hours as needed for Pain Active [facility] Amitriptyline Hcl 50 Mg Tablet Bedtime Active [facility] Amlodipine Besylate 10 Mg Tablet Daily Active [facility] Aspirin 325 Mg Tablet Daily Active [facility] Diazepam 10 Mg Tablet Twice A Day as needed for Anxiety Active [facility] Fluconazole (Diflucan) 100 Mg Tablet Daily Active [facility] Ibuprofen 400 Mg Tablet Three Times A Day as needed for Pain Active [facility] Lamotrigine 100 Mg Tablet Daily Active [facility] Lisinopril 10 Mg Tablet Bedtime Active [facility] Ondansetron (Zofran Odt) 4 Mg Tab.rapdis Every 6 Hours as needed for Nausea And Vomiting Active [facility] Oxybutynin Chloride 5 Mg Tablet Three Times A Day Active [facility] Zolpidem Tartrate (Ambien) 10 Mg Tablet Bedtime Active [facility] Allergies, Adverse Reactions, Alerts No Known Medication Allergies Immunizations No Data Provided for This Section Results Order Name Results Value Reference Range Date Interpretation Comments Source Automated blood basophil count (count/volume) Automated blood basophil count (count/volume) 0.0 0.0 - 0.1 03/27/2018 [facility] Automated blood basophil count as percentage of total leukocytes Automated blood basophil count as percentage of total leukocytes 0.2 0.0 - 1.0 03/27/2018 [facility] Automated blood eosinophil count Automated blood eosinophil count 0.0 0.0 - 0.4 03/27/2018 [facility] Automated blood eosinophil count as percentage of total leukocytes Automated blood eosinophil count as percentage of total leukocytes 0.2 0.0 - 6.0 03/27/2018 [facility] Automated blood hematocrit (volume fraction) Automated blood hematocrit (volume fraction) 35.9 34.2 - 44.1 03/27/2018 [facility] Automated blood lymphocyte count as percentage ot total leukocytes Automated blood lymphocyte count as percentage ot total leukocytes 25.2 18.0 - 39.1 03/27/2018 [facility] Automated blood monocyte count as percentage of total leukocytes Automated blood monocyte count as percentage of total leukocytes 6.4 4.4 - 11.3 03/27/2018 [facility] Automated blood neutrophil count Automated blood neutrophil count 6.7 2.1 - 6.9 03/27/2018 [facility] Automated blood platelet count (count/volume) Automated blood platelet count (count/volume) 210 140 - 360 03/27/2018 [facility] Automated blood segmented neutrophil count as percentage of total leukocytes Automated blood segmented neutrophil count as percentage of total leukocytes 67.4 38.7 - 80.0 03/27/2018 [facility] Automated erythrocyte mean corpuscular hemoglobin (mass per erythrocyte) Automated erythrocyte mean corpuscular hemoglobin (mass per erythrocyte) 29.2 28 - 32 03/27/2018 [facility] Automated erythrocyte mean corpuscular hemoglobin concentration measurement (mass/volume) Automated erythrocyte mean corpuscular hemoglobin concentration measurement (mass/volume) 34.3 31 - 35 03/27/2018 [facility] Automated erythrocyte mean corpuscular volume Automated erythrocyte mean corpuscular volume 85.3 81 - 99 03/27/2018 [facility] Blood erythrocytes automated count (number/volume) Blood erythrocytes automated count (number/volume) 4.21 3.6 - 5.1 03/27/2018 [facility] Blood hemoglobin measurement (moles/volume) Blood hemoglobin measurement (moles/volume) 12.3 12.0 - 16.0 03/27/2018 [facility] Blood leukocytes automated count (number/volume) Blood leukocytes automated count (number/volume) 9.92 4.8 - 10.8 03/27/2018 [facility] Blood lymphocytes count (number/volume) Blood lymphocytes count (number/volume) 2.5 1.0 - 3.2 03/27/2018 [facility] Blood monocytes automated count (number/volume) Blood monocytes automated count (number/volume) 0.6 0.2 - 0.8 03/27/2018 [facility] Estimated glomerular filtration rate (GFR) determination Estimated glomerular filtration rate (GFR) determination >60 60 03/27/2018 [facility] Glucose measurement Glucose measurement 107 74 - 118 03/27/2018 [facility] Serum or plasma anion gap Serum or plasma anion gap 13.1 8 - 16 03/27/2018 [facility] Serum or plasma calcium measurement (mass/volume) Serum or plasma calcium measurement (mass/volume) 8.6 8.4 - 10.2 03/27/2018 [facility] Serum or plasma carbon dioxide, total measurement (moles/volume) Serum or plasma carbon dioxide, total measurement (moles/volume) 23 22 - 29 03/27/2018 [facility] Serum or plasma chloride measurement (moles/volume) Serum or plasma chloride measurement (moles/volume) 111 98 - 107 03/27/2018 [facility] Serum or plasma creatinine measurement (mass/volume) Serum or plasma creatinine measurement (mass/volume) 0.83 0.57 - 1.11 03/27/2018 [facility] Serum or plasma potassium measurement (moles/volume) Serum or plasma potassium measurement (moles/volume) 4.1 3.5 - 5.1 03/27/2018 [facility] Serum or plasma sodium measurement (moles/volume) Serum or plasma sodium measurement (moles/volume) 143 136 - 145 03/27/2018 [facility] Serum or plasma urea nitrogen measurement (mass/volume) Serum or plasma urea nitrogen measurement (mass/volume) 13 7 - 26 03/27/2018 [facility] Serum or plasma urea nitrogen/creatinine mass ratio Serum or plasma urea nitrogen/creatinine mass ratio 16 6 - 25 03/27/2018 [facility] Red Cell Distribution Width 13.6 11.7 - 14.4 03/27/2018 [facility] IM GRANULOCYTES % 0.6 0.0 - 1.0 03/27/2018 [facility] Absolute Immature Granulocyte (auto 0.06 0 - 0.1 03/27/2018 [facility] Automated urine sediment leukocyte count by microscopy (number/high power field) Automated urine sediment leukocyte count by microscopy (number/high power field) <50 0 - 5 03/25/2018 [facility] Bacteria detection in urine sediment by light microscopy Bacteria detection in urine sediment by light microscopy FEW NONE 03/25/2018 [facility] Epithelial cells detection in urine sediment by light microscopy Epithelial cells detection in urine sediment by light microscopy RARE NONE 03/25/2018 [facility] Erythrocytes detection in urine sediment by light microscopy Erythrocytes detection in urine sediment by light microscopy <10 0 - 5 03/25/2018 [facility] Mucus detection in urine sediment by light microscopy Mucus detection in urine sediment by light microscopy FEW RARE 03/25/2018 [facility] Plasma globulin measurement (mass/volume) Plasma globulin measurement (mass/volume) 3.3 2.3 - 3.5 03/25/2018 [facility] Serum or plasma alanine aminotransferase measurement (enzymatic activity/volume) Serum or plasma alanine aminotransferase measurement (enzymatic activity/volume) 20 0 - 55 03/25/2018 [facility] Serum or plasma albumin measurement (mass/volume) Serum or plasma albumin measurement (mass/volume) 4.0 3.5 - 5.0 03/25/2018 [facility] Serum or plasma albumin/globulin mass ratio Serum or plasma albumin/globulin mass ratio 1.2 0.8 - 2.0 03/25/2018 [facility] Serum or plasma alkaline phosphatase measurement (enzymatic activity/volume) Serum or plasma alkaline phosphatase measurement (enzymatic activity/volume) 84 40 - 150 03/25/2018 [facility] Serum or plasma protein measurement (mass/volume) Serum or plasma protein measurement (mass/volume) 7.3 6.5 - 8.1 03/25/2018 [facility] Serum or plasma total bilirubin measurement (mass/volume) Serum or plasma total bilirubin measurement (mass/volume) 0.3 0.2 - 1.2 03/25/2018 [facility] Specific gravity of Urine by Test strip Specific gravity of Urine by Test strip 1.020 1.010 - 1.025 03/25/2018 [facility] Urine clarity Urine clarity CLEAR CLEAR 03/25/2018 [facility] Urine color determination Urine color determination YELLOW YELLOW 03/25/2018 [facility] Urine erythrocytes detection Urine erythrocytes detection TRACE NEGATIVE 03/25/2018 [facility] Urine glucose detection Urine glucose detection NEGATIVE NEGATIVE 03/25/2018 [facility] Urine ketones detection by automated test strip Urine ketones detection by automated test strip NEGATIVE NEGATIVE 03/25/2018 [facility] Urine leukocyte esterase detection by dipstick Urine leukocyte esterase detection by dipstick TRACE NEGATIVE 03/25/2018 [facility] Urine nitrite detection Urine nitrite detection NEGATIVE NEGATIVE 03/25/2018 [facility] Urine pH measurement by automated test strip Urine pH measurement by automated test strip 6 5 - 7 03/25/2018 [facility] Urine protein measurement by test strip (mass/volume) Urine protein measurement by test strip (mass/volume) 1+ NEGATIVE 03/25/2018 [facility] Urine total bilirubin measurement (mass/volume) Urine total bilirubin measurement (mass/volume) NEGATIVE NEGATIVE 03/25/2018 [facility] Urine urobilinogen measurement by test strip (mass/volume) Urine urobilinogen measurement by test strip (mass/volume) 0.2 0.2 - 1 03/25/2018 [facility] Aspartate Amino Transf (AST/SGOT) 22 5 - 34 03/25/2018 [facility] Yeast detection in urine sediment by light microscopy Yeast detection in urine sediment by light microscopy FEW NONE 07/24/2017 [facility] Serum or plasma magnesium measurement (mass/volume) Serum or plasma magnesium measurement (mass/volume) 1.7 1.3 - 2.1 07/06/2017 [facility] Urine human chorionic gonadotropin (hCG) detection Urine human chorionic gonadotropin (hCG) detection NEGATIVE NEGATIVE 07/04/2017 [facility] Bacterial urine culture Bacterial urine culture Urine Culture [facility] Pathology Reports No Data Provided for [...] Date DC Date Status Source Discharged Inpatient [id number] HUGO PINA MD 07/04/2017 07/07/2017 [facility] Discharged Inpatient [id number] HUGO PINA MD 07/24/2017 07/27/2017 [facility] Discharged Inpatient (obs) [id number] NI KEE MD 03/26/2018 03/28/2018 [facility] Procedures Procedure Code Date Perfomer Comments Source Extracorporeal shock wave lithotripsy (ESWL) [id number] 03/26/2018 [facility] Cystoscopy with retrograde pyelography [id number] 03/26/2018 [facility] EXTIRPATION OF MATTER FROM RIGHT KIDNEY, ENDO [id number] 07/26/2017 [facility] EXTIRPATION OF MATTER FROM LEFT KIDNEY, ENDO [id number] 07/26/2017 [facility] DILATION OF BILATERAL URETERS WITH INTRALUMINAL DEVICE, ENDO [id number] 07/26/2017 [facility] EXTIRPATION OF MATTER FROM RIGHT URETER, ENDO [id number] 07/05/2017 [facility] DILATION OF RIGHT URETER WITH INTRALUMINAL DEVICE, ENDO [id number] 07/05/2017 [facility] FLUOROSCOPY KIDNEY, URETER, BLADDER, R W L OSM CONTRAST [id number] 07/05/2017 [facility] CT of abdomen and pelvis without contrast [id number] 07/04/2017 [facility] Assessment and Plan No Data Provided for This Section Plan of Care Plan of Care Date Source Discharge Date 03/28/18 11:30am Disposition HOME, SELF-CARE Instructions/Education Provided Kidney Stones Prescriptions See Medication Section Referrals SHELLIE VALDERRAMA MD (Urology) Order Date: 1 Week Entered Date: 03/28/2018 10:32am Address: [address] [place] [id number] Additional Instructions/Education STRAIN URINE AT ALL TIMES. COLLECT STONE OR SEDIMENT IF IT IS PASSED AND TAKE TO DR. VALDERRAMA OFFICE. F/U WITH DR. VALDERRAMA IN 1-2 WEEKS F/U WITH PCP 03/28/2018 [facility] Social History Social History Date Source [...] 07/24/2017 5:25pm Not Applicable Not Applicable 03/28/2018 [facility] Family History No Data Provided for This Section Advance Directives Order Name Results Value Date Source Advance Directives Advance Directives Directive Response Recorded Date/Time Does the patient have an advance directive? No 03/26/18 2:30pm If yes, is advance directive on file with [facility]? No 03/26/18 2:30pm If not on file with [facility] will patient provide a copy? No 03/26/18 2:30pm Do you have a Directive to Physician? No 03/25/18 8:10pm Do you have a Medical Power of Tightening Machine Operator? No 03/25/18 8:10pm Do you have an [...] rights and responsibilities? Yes 03/25/18 8:10pm 03/28/2018 [facility] Functional Status No Data Provided for This Section
[2019-05-15] MEDS ORDERED: DIAZEPAM 5 MG TAB PO PRN (09:30)
[2019-05-15] MEDS ORDERED: LORATADINE 10 MG TAB PO SCH (09:30)
[2019-05-15] MEDS ORDERED: GUAIFENESIN 600MG/DEXTROMETHORPHAN 30MG TABSR PO SCH (09:30)
[2019-05-15] MEDS ORDERED: GENTAMICIN 80MG/NS 100 ML 200 ML IV ONE (09:45)
[2019-05-15] MEDS ORDERED: CEFTRIAXONE SOD 1 GM/NS 50 ML 0 ML IV ONE (09:45)
--- NOTE | 2019-05-15 09:47 | NUR ---
PT STABLE, NOW IN OR FOR PROCEDURE
[2019-05-15] MEDS ORDERED: IOPAMIDOL 300MG/ML 50ML INFUS..BTL IV ONE (10:06)
[2019-05-15] MEDS ORDERED: B&O 60MG R/S 60 MG SUPP PR ONE (10:07)
--- NOTE | 2019-05-15 11:32 | NUR ---
PT TO DC FROM PACU
[2019-05-15 12:00] VITALS: BP 159/90
[2019-05-15] MEDS ORDERED: ALBUTEROL/IPRATROPIUM 3 ML NEB NEB SCH (13:00)
[2019-05-15] MEDS ORDERED: MIDAZOLAM HCL 2 MG/2 ML VIAL ONE (14:24)
[2019-05-15] MEDS ORDERED: FENTANYL CITRATE/PF 100MCG/2 ML INJ ONE (14:24)
[2019-05-15] MEDS ORDERED: DEXAMETHASONE SOD PHOS INJ 4 MG/ML VIAL ONE (18:26)
[2019-05-15] MEDS ORDERED: SEVOFLURANE INHAL SOLN 250 ML PEN BTL ONE (18:26)
[2019-05-15] MEDS ORDERED: ONDANSETRON HCL INJ 2MG/ML 2ML 2 MG/ML VIAL ONE (18:26)
[2019-05-15] MEDS ORDERED: LIDOCAINE HCL 2% LOCAL INJ 5 ML SDV VIAL INJ ONE (18:26)
[2019-05-15] MEDS ORDERED: PROPOFOL IV EMULSION 10 MG/ML 20 ML VIAL ONE (18:26)
[2019-05-15] MEDS ORDERED: LISINOPRIL 20 MG TAB PO SCH (21:00)
[2019-05-15] MEDS ORDERED: AMITRIPTYLINE HCL 25 MG TAB PO SCH (21:00)
[2019-05-15] MEDS ORDERED: ZOLPIDEM TARTRATE 10 MG TAB PO SCH (21:00)
[2019-05-16] MEDS ORDERED: AMLODIPINE BESYLATE 10 MG TAB PO SCH (09:00)
[2019-05-16] MEDS ORDERED: VANCOMYCIN 1GM/NS 250 ML 250 ML IV SCH (09:00)
--- NOTE | 2019-06-22 00:10 | Operative Report ---
DATE OF PROCEDURE: 05/15/2019 SURGEON: Akbar Mccarthy MD PREOPERATIVE DIAGNOSES: 1. Right nephrolithiasis. 2. Urinary tract infections. POSTOPERATIVE DIAGNOSES: 1. Right nephrolithiasis. 2. Urinary tract infections. 3. Grade 1 cystocele. 4. Grade 1 rectocele. 5. Mild atrophic (senile) vaginitis. OPERATION PERFORMED: Note these were all staged procedures as part of multistage, multistep process in managing the patient's urolithiasis. 1. Right-sided extracorporeal shockwave lithotripsy (separate procedure performed for the right lower pole stone). 2. Cystourethroscopy with bilateral ureteral catheterization and retrograde ureteropyelography (separate procedure performed for the urinary tract infections). 3. Interpretation of retrograde ureteropyelography. 4. Supervision of fluoroscopy, no radiologist present. 5. Pelvic examination under anesthesia. ANESTHESIA: General. COMPLICATIONS: None. CLINICAL SUMMARY: Zaynab Alvarez is a complicated 53-year-old woman with recurrent urolithiasis. She is brought for the above procedure. She is aware of the risks of bleeding, infection, injury to adjacent structures, need for additional procedures, and elected to proceed. OPERATIVE PROCEDURE IN DETAIL: Informed consent was verified. Zaynab Alvarez was properly identified, taken to the operating room, and placed on the lithotripsy table in supine position. Anesthesia was uneventfully begun. The patient's right nephrolithiasis was localized with biplanar fluoroscopy. A total of 3000 shocks were delivered to the lower pole on the right-hand side. The patient was then carefully and gently repositioned in dorsal lithotomy position with all pressure points well padded. Her genitalia were prepared and draped in usual sterile fashion. The cystoscope sheath was inserted into the patient's urethra and the bladder was drained. Panendoscopy revealed no suspicious mucosal lesions, no tumors, no stones, and no diverticula. Normally positioned configured ureteral orifices were identified. Ureteral catheter was used to cannulate each ureter and retrograde ureteropyelogram was performed. Interpretation of retrograde ureteropyelography contrast was instilled in retrograde fashion bilaterally. In lower pole calyx on the left hand side, there was medial filling defect, which could be related to residual stone. The right upper pole exhibited a stone, but this was in the calyceal diverticulum. The treated right lower pole had initial filling defects consistent with stone, debris, and blood clots. There was unobstructed drainage observed bilaterally fluoroscopically. The patient's bladder was drained and cystoscope was withdrawn. Pelvic examination revealed a grade 1 cystocele, grade 1 rectocele. There was mild atrophic vaginitis. The patient was then uneventfully reversed from anesthesia and taken to recovery room in stable condition. There were no complications to the procedure. She tolerated the procedure well. Explicit postop instructions were given and we will follow the patient up in the office. Akbar MD Shari [place]/JACQUI /[id number] cc: Chava Arceo
== END 2019-05-15 | disposition home or self-care (01) ==
LOC: ER 19:56 → ERHOLD 23:26 → UNDOADMOB 23:26 → OR 05-15 09:24
PROVIDERS: ATTEND Urology
DX: N20.0 Calculus of kidney (principal); N39.0 Urinary tract infection, site not specified; N81.10 Cystocele, unspecified; N81.6 Rectocele; N95.2 Postmenopausal atrophic vaginitis; I10 Essential (primary) hypertension; K76.0 Fatty (change of) liver, not elsewhere classified; G47.00 Insomnia, unspecified; F41.9 Anxiety disorder, unspecified; F32.9 Major depressive disorder, single episode, unspecified; Z88.1 Allergy status to other antibiotic agents; Z86.73 Personal history of transient ischemic attack (TIA), and cerebral infarction without residual deficits
CPT/HCPCS: 36415; 50590; 74176; 80053; 80307; 81001; 81025; 82150; 83690; 85025; 87086; 99284; C1758; J1100; J1580; J1885; J2001; J2250; J2270; J2405; J2704; J3010; J7030 ×2; Q9967; J0696

== ENCOUNTER 2020-09-02 17:18 | Observation (INO) | payer BC ==
[~2020-09-02] VITALS: Ht 152.4 cm; Wt 87.3 kg
[2020-09-02] MEDS ORDERED: ASPIRIN 81 MG CHEW TAB PO ONE ×2 (18:00→19:15)
[2020-09-02 18:14] LABS: BASOPHILS # (AUTO) 0.1 (0.0-0.1); BASOPHILS % 0.7 % (0.0-1.0); EOSINOPHILS # (AUTO) 0.2 (0.0-0.4); EOSINOPHILS % 1.4 % (0.0-6.0); HEMATOCRIT 46.2 % (34.2-44.1); HEMOGLOBIN 15.3 g/dL (12.0-16.0); LYMPHOCYTES # (AUTO) 3.5 (1.0-3.2); LYMPHOCYTES % 28.7 % (18.0-39.1); MEAN CORPUSCULAR HGB CONC 33.1 g/dL (31-35); MEAN CORPUSCULAR VOLUME 84.6 fL (81-99); MONOCYTES # (AUTO) 0.6 (0.2-0.8); NEUTROPHILS # (AUTO) 7.8 (2.1-6.9); NEUTROPHILS % 63.7 % (38.7-80.0); PLATELET COUNT 287 x10e3/uL (140-360); RED BLOOD COUNT 5.46 x10e6/uL (3.6-5.1)
[2020-09-02 18:32] LABS: ALANINE AMINOTRANSFERASE 17 IU/L (0-55); ALBUMIN 4.3 g/dL (3.5-5.0); ALBUMIN/GLOBULIN RATIO 1.3 (0.8-2.0); ALKALINE PHOSPHATASE 90 IU/L (40-150); BLOOD UREA NITROGEN 16 mg/dL (7-26); BUN/CREATININE RATIO 14 (6-25); CALCIUM 10.3 mg/dL (8.4-10.2); CARBON DIOXIDE 26 mmol/L (22-29); CHLORIDE 103 mmol/L (98-107); CREATINE KINASE 62 IU/L (29-168); CREATININE, SERUM 1.13 mg/dL (0.57-1.11); EST GLOMERULAR FILTRATION RATE 50 ML/MIN (60-); GLUCOSE 96 mg/dL (74-118); SODIUM 141 mmol/L (136-145)
[2020-09-02] MEDS: SODIUM CHLORIDE 0.9% 1000ML 1,000 ML IV SCH (20:07)
[2020-09-02] MEDS: ONDANSETRON HCL INJ 2MG/ML 2ML 2 MG/ML VIAL IV PRN (20:47)
[2020-09-02] MEDS: MORPHINE SULFATE INJ 4 MG/ML INJ 1ML IV PRN (20:47)
[2020-09-03] VITALS (8 sets, daily range): BP systolic 123–157; BP diastolic 66–77
[2020-09-03] MEDS: ONDANSETRON HCL INJ 2MG/ML 2ML 2 MG/ML VIAL IV PRN ×3 (00:56→10:45)
[2020-09-03] MEDS: MORPHINE SULFATE INJ 4 MG/ML INJ 1ML IV PRN ×3 (00:56→10:45)
[2020-09-03 01:57] LABS: CREATINE KINASE 48 IU/L (29-168)
[2020-09-03] MEDS: SODIUM CHLORIDE 0.9% 1000ML 1,000 ML IV SCH (06:12)
[2020-09-03 06:53] LABS: BASOPHILS # (AUTO) 0.1 (0.0-0.1); BASOPHILS % 0.6 % (0.0-1.0); EOSINOPHILS # (AUTO) 0.2 (0.0-0.4); EOSINOPHILS % 2.1 % (0.0-6.0); HEMATOCRIT 42.8 % (34.2-44.1); HEMOGLOBIN 13.8 g/dL (12.0-16.0); LYMPHOCYTES # (AUTO) 4.2 (1.0-3.2); LYMPHOCYTES % 40.7 % (18.0-39.1); MEAN CORPUSCULAR HEMOGLOBIN 27.9 pg (28-32); MEAN CORPUSCULAR HGB CONC 32.2 g/dL (31-35); MEAN CORPUSCULAR VOLUME 86.6 fL (81-99); MONOCYTES # (AUTO) 0.7 (0.2-0.8); MONOCYTES % 6.4 % (4.4-11.3); NEUTROPHILS # (AUTO) 5.2 (2.1-6.9); NEUTROPHILS % 49.8 % (38.7-80.0); PLATELET COUNT 268 x10e3/uL (140-360); RED BLOOD COUNT 4.94 x10e6/uL (3.6-5.1); RED CELL DISTRIBUTION WIDTH 13.8 % (11.7-14.4)
[2020-09-03 07:11] LABS: ALANINE AMINOTRANSFERASE 14 IU/L (0-55); ALBUMIN 3.5 g/dL (3.5-5.0); ALBUMIN/GLOBULIN RATIO 1.2 (0.8-2.0); ALKALINE PHOSPHATASE 75 IU/L (40-150); ANION GAP 10.9 mmol/L (8-16); BLOOD UREA NITROGEN 15 mg/dL (7-26); BUN/CREATININE RATIO 16 (6-25); CALCIUM 8.9 mg/dL (8.4-10.2); CARBON DIOXIDE 28 mmol/L (22-29); CHLORIDE 105 mmol/L (98-107); CREATININE, SERUM 0.94 mg/dL (0.57-1.11); EST GLOMERULAR FILTRATION RATE > 60 ML/MIN (60-); GLUCOSE 100 mg/dL (74-118); POTASSIUM 3.9 mmol/L (3.5-5.1); SODIUM 140 mmol/L (136-145)
[2020-09-03] MEDS ORDERED: ONDANSETRON HCL 4 MG ORAL DISINTEGRATING TAB SL PRN (14:15)
[2020-09-03] MEDS ORDERED: TRAMADOL HCL 50 MG TAB PO PRN (14:15)
[2020-09-03] MEDS ORDERED: DIAZEPAM 5 MG TAB PO PRN (14:45)
[2020-09-03] MEDS ORDERED: OXYBUTYNIN CHLORIDE 5 MG TAB PO SCH (15:00)
[2020-09-03] MEDS ORDERED: ECOTRIN81 MG PEG (15:48)
[2020-09-03] MEDS ORDERED: FAMOTIDINE 20 MG TAB PO SCH (16:30)
[2020-09-03 16:50] LABS: CREATINE KINASE MB 1.2 ng/mL (0-5.0)
[2020-09-03] MEDS ORDERED: AMLODIPINE BESYLATE 10 MG TAB PO SCH (17:00)
[2020-09-03] MEDS ORDERED: ENOXAPARIN SOD INJ 40 MG/0.4 ML SYR SC SCH (17:00)
[2020-09-03 17:26] LABS: CHOL/HDL RATIO 5.5 (3.0-3.6)
[2020-09-03] MEDS ORDERED: AMITRIPTYLINE HCL 25 MG TAB PO SCH (21:00)
[2020-09-03] MEDS ORDERED: ZOLPIDEM TARTRATE 10 MG TAB PO SCH (21:00)
[2020-09-03] MEDS ORDERED: ATORVASTATIN 20 MG TAB PO SCH (21:00)
[2020-09-04] MEDS ORDERED: LAMOTRIGINE 100 MG TAB PO SCH (09:00)
[2020-09-04] MEDS ORDERED: ASPIRIN 325 MG TAB PO SCH (09:00)
== END 2020-09-03 17:50 | disposition home or self-care (01) ==
LOC: ER 17:43 → ERHOLD 19:06 → MED/SURG3 09-03 01:55
PROVIDERS: ADMIT Internal Medicine; ATTEND Internal Medicine
DX: G45.9 Transient cerebral ischemic attack, unspecified (principal); Z86.73 Personal history of transient ischemic attack (TIA), and cerebral infarction without residual deficits; F41.9 Anxiety disorder, unspecified; F32.9 Major depressive disorder, single episode, unspecified; I10 Essential (primary) hypertension; Z20.822 Contact with and (suspected) exposure to COVID-19
CPT/HCPCS: 36415; 70450; 70551; 71045; 80053; 80061; 82550; 82553; 83036; 83874; 83880; 84146; 84484; 85025; 93005; 99284; G0378; J2270; J2405; J7030; U0002

== ENCOUNTER 2020-09-19 15:27 | Emergency (ER) | payer BC ==
[~2020-09-19] VITALS: Ht 152.4 cm; Wt 87.1 kg
[~2020-09-19 15:27] MED LIST changes: +ECOTRIN81 MG PEG
== END 2020-09-19 18:00 | disposition home or self-care (01) ==
LOC: ER 15:40
DX: S16.1XXA Strain of muscle, fascia and tendon at neck level, initial encounter (principal); R51.9 Headache, unspecified; V43.52XA Car driver injured in collision with other type car in traffic accident, initial encounter; Y92.488 Other paved roadways as the place of occurrence of the external cause; I10 Essential (primary) hypertension; Z86.73 Personal history of transient ischemic attack (TIA), and cerebral infarction without residual deficits; Z87.442 Personal history of urinary calculi
CPT/HCPCS: 72050; 99284

== ENCOUNTER 2021-08-28 21:28 | Emergency (ER) | payer BC ==
[~2021-08-28] VITALS: Ht 152.4 cm; Wt 87.1 kg
[2021-08-28] MEDS ORDERED: KETOROLAC TROMETHAMINE 30 MG/ML VIAL IV STA (22:25)
[2021-08-28 22:38] LABS: BASOPHILS # (AUTO) 0.1 (0.0-0.1); BASOPHILS % 0.6 % (0.0-1.0); EOSINOPHILS # (AUTO) 0.5 (0.0-0.4); HEMATOCRIT 45.5 % (34.2-44.1); HEMOGLOBIN 14.8 g/dL (12.0-16.0); LYMPHOCYTES # (AUTO) 3.8 (1.0-3.2); LYMPHOCYTES % 28.7 % (18.0-39.1); MEAN CORPUSCULAR HEMOGLOBIN 28.7 pg (28-32); MEAN CORPUSCULAR HGB CONC 32.5 g/dL (31-35); MEAN CORPUSCULAR VOLUME 88.3 fL (81-99); MONOCYTES # (AUTO) 0.8 (0.2-0.8); MONOCYTES % 6.1 % (4.4-11.3); NEUTROPHILS # (AUTO) 7.9 (2.1-6.9); NEUTROPHILS % 60.3 % (38.7-80.0); PLATELET COUNT 258 x10e3/uL (140-360); RED BLOOD COUNT 5.15 x10e6/uL (3.6-5.1); RED CELL DISTRIBUTION WIDTH 13.8 % (11.7-14.4)
[2021-08-28 22:49] LABS: CLARITY,URINE CLOUDY (CLEAR); COLOR,URINE YELLOW (YELLOW); KETONES,URINE NEGATIVE (NEGATIVE); LEUKOCYTE ESTERASE ,URINE 1+ (NEGATIVE); NITRITE,URINE NEGATIVE (NEGATIVE); PROTEIN,URINE DIPSTICK 1+ (NEGATIVE); URINE UROBILINOGEN 0.2 mg/dL (0.2 - 1)
[2021-08-28 22:57] LABS: BACTERIA,URINE MODERATE /HPF; EPITHELIAL CELLS,URINE MANY /LPF; WBC,URINE (MAN) >50 /HPF (0-5)
[2021-08-28 23:07] LABS: ANION GAP 14.7 mmol/L (8-16); CALCIUM 9.4 mg/dL (8.4-10.2); CREATININE, SERUM 1.13 mg/dL (0.57-1.11); POTASSIUM 3.7 mmol/L (3.5-5.1)
== END 2021-08-29 00:34 | disposition home or self-care (01) ==
LOC: ER 23:14
DX: N39.0 Urinary tract infection, site not specified (principal); N23 Unspecified renal colic; Z87.442 Personal history of urinary calculi; I10 Essential (primary) hypertension; Z88.1 Allergy status to other antibiotic agents
CPT/HCPCS: 36415; 74176; 80048; 81001; 85025; 87086; 99284; J1885

== ENCOUNTER 2023-02-14 10:32 | Emergency (ER) | payer BC ==
[~2023-02-14] VITALS: Ht 152.4 cm; Wt 87.1 kg
[2023-02-14 11:00] VITALS: O2SAT 100
[2023-02-14] MEDS ORDERED: NAPROSYN500 MG PO (12:14)
[2023-02-14] MEDS ORDERED: CYCLOBENZAPRINE10 MG PO (12:14)
[2023-02-14] MEDS ORDERED: PREDNISONE20 MG PO (12:14)
== END 2023-02-14 13:11 | disposition home or self-care (01) ==
LOC: ER 10:53
DX: M48.061 Spinal stenosis, lumbar region without neurogenic claudication (principal); M62.830 Muscle spasm of back; I10 Essential (primary) hypertension; Z86.73 Personal history of transient ischemic attack (TIA), and cerebral infarction without residual deficits; Z87.442 Personal history of urinary calculi
CPT/HCPCS: 72131; 99283